=== PATIENT | male | born 1950 | race Caucasian/White ===

== ENCOUNTER 2018-05-20 10:46 | Emergency (ER) | payer OTHER, SELFPAY ==
--- NOTE | 2018-05-20 10:53 | W.ED.GENAD ---
Discharge Plan Disposition Patient Disposition: HOME Condition: Fair Discharge Details Chief Complaint: Orthopedic Clinical Impression: Contusion of right shoulder, Impingement syndrome of right shoulder Primary Care Provider: Lesley Jones ED Provider: Shikha Rivero Home Meds and New Rx's Prescriptions: New ibuprofen 800 mg tablet 800 mg PO TID PRN (Reason: pain) Qty: 20 RF: 0 Continued aspirin [Lo-Dose Aspirin] 81 MG tablet,delayed release (DR/EC) 81 mg PO DAILY RF: 0 Varicella-Zoster Ge/As01b/Pf [Shingrix Vial Kit] 50 MCG INJ 50 mcg IM ONCE Qty: 1 RF: 1 Atorvastatin Calcium 20 MG tablet 20 mg PO DAILY Qty: 90 RF: 3 No Action amlodipine-benazepril 10-20 mg capsule 1 cap PO DAILY Qty: 90 RF: 0 Discharge Instructions Instructions: Rotator Cuff Injury (ED), Contusion in Adults (ED) Additional Instructions: Encourage rest and ice to right shoulder. Tylenol and/or Ibuprofen. Ibuprofen will help with swelling. May try Salonpas or Lidoderm patches for discomfort. Passive range of motion exercises as discussed to prevent frozen shoulder. Please call orthopedics to schedule follow up appointment, number listed below. If you develop new/worsening symptoms please seek care urgently once again. Referrals: Noe Leach MD [ [facility] STAFF PHYSICIAN] - Discharge Data Discharge Date/Time-TO BE ENTERED AT DEPARTURE: 05/20/18 12:46 Medical Decision Making Patient is 68-year llskz-yono-wuhsgwtv male presenting today with chief complaint of right shoulder pain. He reports that he fell when he slipped on the ice yesterday and landed on the right shoulder. States the pain is progressively increasing and he is noted diminished range of motion. He denies any altered sensation. Denies other injury at the time of the incident. Denies headache, no loss conscious. No neck pain on exam. Full range of motion no midline or paraspinal tenderness. Pain is primarily over the lateral aspect of the shoulder. He has a positive Neer and Hawkin. I have primarily concern for rotator cuff injury, possibly impingement syndrome. No pain over any bony prominences. I did advise the patient that I am concerned about him potentially developing adhesive capsulitis. Will obtain x-ray to evaluate for any bony abnormality. Discussed this plan with patient who is in agreement. Patient given Tylenol and ibuprofen to help with discomfort Spoke with radiologist who advised no acute abnormality on XR. Discussed these findings with the patient. Advised that his history and exam is most concerning for impingement syndrome versus rotator cuff injury. She has limited range of motion I am concerned for adhesive capsulitis. He was given passive range of motion exercises to help promote range of motion and prevent this from worsening. Encourage use of anti-inflammatories. Patient prescribed ibuprofen. We discussed topical options and may also help with discomfort. In particular, patient was concerned he is having pain when laying supine. We did discuss positional changes he may make to help with discomfort at night. We discussed new/worsening symptoms when to seek care urgently once again. Advise follow-up with orthopedics, he will call them this afternoon to schedule follow-up appointment. I advised that he seek care urgently once again with any new or worsening symptoms. All of his questions and concerns were addressed and he is in agreement with this plan HPI General Mode of arrival: ambulatory. Date/Time Provider Initiated Documentation: 05/20/18 10:52. Limitations to Documentation: no limitations. Information obtained by: patient. History of Present Illness 68 year old M presents to the emergency department with the chief complaint of right shoulder pain, described as moderate, with intensity rated at 6. Quality is described as aching, and is localized to the right and upper extremity. Patient distal (into upper 1/2 of lateral right arm). Patient started experiencing this day(s) (1) and it has been constant. Immobilization improves symptom(s), Movement worsens symptoms . Patient notes denies chest pain, cough, fever/chills, headaches, rash and weakness. Patient did receive the following treatments prior to arrival, none Related Data Home Medications Medication Instructions Recorded Confirmed aspirin [Lo-Dose Aspirin] 81 mg PO DAILY tab-cap 09/03/12 05/20/18 amlodipine 10 mg-benazepril 20 mg 1 cap PO DAILY #90 tab-cap 05/20/18 capsule ibuprofen 800 mg PO TID PRN #20 tab 05/20/18 Previous Rx's Medication Instructions Recorded amlodipine 10 mg-benazepril 20 mg 1 cap PO DAILY #90 tab-cap 05/20/18 capsule ibuprofen 800 mg PO TID PRN #20 tab 05/20/18 Allergies Allergy/AdvReac Type Severity Reaction Status Date / Time No Known Allergies Allergy Unverified 12/09/17 10:09 Review of Systems Constitutional Reports as per HPI, Denies chills, Denies fever(s), Denies headache(s) and Denies weakness ENT Denies headache(s) Cardiovascular Reports as per HPI Respiratory Reports as per HPI and Denies cough Musculoskeletal Reports as per HPI and Denies tingling Integumentary/Breasts Reports as per HPI, Denies rash and Denies wounds Neurologic Denies headache(s), Denies tingling and Denies weakness [facility] Surgical History Appendectomy Arthroplasty of knee Colonoscopy - IV Sedation (04/09/16) Skin Cancer Removal Tonsillectomy blepharoplasty Family History Father Essential hypertension Heart disease Mother No problems noted. Brother No problems noted. Other Colon cancer Lung cancer Social History Smoking/Tobacco Use Status: Never Exam Const General: cooperative, healthy appearing, comfortable, no acute distress, well developed and well groomed Nutritional Appearance: average body habitus and well nourished Orientation: alert and awake Chest Chest: normal inspection of the chest, normal palpation of entire chest wall, no crepitus and no localized rib tenderness Resp Effort & Inspection: normal respiratory effort, able to speak in complete sentences and no respiratory distress Auscultation: clear to auscultation bilaterally Cardio Rate: regular rate Rhythm: regular rhythm Heart Sounds: S1 normal and S2 normal Skin General skin exam: no rashes or lesions noted Lesions: no lesions Rashes: no rashes Trauma: no lacerations or abrasions Neuro General: alert and awake Cognition: normal cognition Speech: speech normal Gait: normal gait Motor: muscle tone normal throughout Sensory Exam: no sensory deficits noted Extrem Right upper extremity: normal capillary refill, no joint enlargement, shoulder/upper arm Details: tenderness Location: over the subacromial bursa; not of the clavicle, not of the A-C joint, not of the proximal humerus, not of the scapula, not of the mid-shaft humerus and not over the biceps tendon and abnormal ROM; abnormal to inspection, no swelling, ROM limited, no ecchymosis, no crepitus, no deformity and no unusual warmth, elbow/forearm Details: normal to inspection and normal ROM; no tenderness and no swelling, wrist Details: normal to inspection; no tenderness and hand Details: neuromotor exam abnormal and neurosensory exam normal; ROM limited (FE lacking 15 degrees, ER limited 20 degrees, IR to gluteus shoulder) Psych Appearance: grossly normal and well kempt Mental Status: mental status grossly normal Speech and Movement: speech and movement normal
[2018-05-20 10:55] VITALS: BP 134/94; PULSE 88; RESP 18; TEMP 36.2; O2SAT 99
--- NOTE | 2018-05-20 11:05 | DI.RAD_ITS ---
SYMPTOMS/DIAGNOSIS: FALL RIGHT SHOULDER: There is no evidence of an acute fracture or dislocation. Mild degenerative changes are identified.
--- NOTE | 2018-05-20 11:07 | ED.GENADUL_ITS ---
Discharge Plan Disposition Patient Disposition: HOME Condition: Fair Discharge Details Chief Complaint: Orthopedic Clinical Impression: Contusion of right shoulder, Impingement syndrome of right shoulder Primary Care Provider: Lesley Jones ED Provider: Shikha Rivero Home Meds and New Rx's Prescriptions: New ibuprofen 800 mg tablet 800 mg PO TID PRN (Reason: pain) Qty: 20 RF: 0 Continued aspirin [Lo-Dose Aspirin] 81 MG tablet,delayed release (DR/EC) 81 mg PO DAILY RF: 0 Varicella-Zoster Ge/As01b/Pf [Shingrix Vial Kit] 50 MCG INJ 50 mcg IM ONCE Qty: 1 RF: 1 Atorvastatin Calcium 20 MG tablet 20 mg PO DAILY Qty: 90 RF: 3 No Action amlodipine-benazepril 10-20 mg capsule 1 cap PO DAILY Qty: 90 RF: 0 Discharge Instructions Instructions: Rotator Cuff Injury (ED), Contusion in Adults (ED) Additional Instructions: Encourage rest and ice to right shoulder. Tylenol and/or Ibuprofen. Ibuprofen will help with swelling. May try Salonpas or Lidoderm patches for discomfort. Passive range of motion exercises as discussed to prevent frozen shoulder. Please call orthopedics to schedule follow up appointment, number listed below. If you develop new/worsening symptoms please seek care urgently once again. Referrals: Noe Leach MD [ [facility] STAFF PHYSICIAN] - Discharge Data Discharge Date/Time-TO BE ENTERED AT DEPARTURE: 05/20/18 12:46 Medical Decision Making Patient is 68-year [id number] male presenting today with chief complaint of right shoulder pain. He reports that he fell when he slipped on the ice yesterday and landed on the right shoulder. States the pain is progressively increasing and he is noted diminished range of motion. He denies any altered sensation. Denies other injury at the time of the incident. Denies headache, no loss conscious. No neck pain on exam. Full range of motion no midline or paraspinal tenderness. Pain is primarily over the lateral aspect of the shoulder. He has a positive Neer and Hawkin. I have primarily concern for rotator cuff injury, possibly impingement syndrome. No pain over any bony prominences. I did advise the patient that I am concerned about him potentially developing adhesive capsulitis. Will obtain x-ray to evaluate for any bony abnormality. Discussed this plan with patient who is in agreement. Patient gi yeyo Tylenol and ibuprofen to help with discomfort Spoke with radiologist who advised no acute abnormality on XR. Discussed these findings with the patient. Advised that his history and exam is most concerning for impingement syndrome versus rotator cuff injury. She has limited range of motion I am concerned for adhesive capsulitis. He was given passive range of motion exercises to help promote range of motion and prevent this from worsening. Encourage use of anti-inflammatories. Patient prescribed ibuprofen. We discussed topical options and may also help with discomfort. In particular, patient was concerned he is having pain when laying supine. We did discuss positional changes he may make to help with discomfort at night. We discussed new/worsening symptoms when to seek care urgently once again. Advise follow-up with orthopedics, he will call them this afternoon to schedule follow- up appointment. I advised that he seek care urgently once again with any new or worsening symptoms. All of his questions and concerns were addressed and he is in agreement with this plan HPI General Mode of arrival: ambulatory . Date/Time Provider Initiated Documentation: 05/20/18 10:52 . Limitations to Documentation: no limitations . Information obtained by: patient . History of Present Illness 68 year old M presents to the emergency department with the chief complaint of right shoulder pain, described as moderate, with intensity rated at 6. Quality is described as aching, and is localized to the right and upper extremity. Patient distal (into upper 1/2 of lateral right arm). Patient started experiencing this day(s) (1) and it has been constant. Immobilization improves symptom(s), Movement worsens symptoms . Patient notes denies chest pain, cough, fever/chills, headaches, rash and weakness. Patient did receive the following treatments prior to arrival, none Related Data Home Medications Medication Instructions Recorded Confirmed aspirin [Lo-Dose Aspirin] 81 mg PO DAILY tab-cap 09/03/12 05/20/18 amlodipine 10 mg-benazepril 20 mg 1 cap PO DAILY #90 tab-cap 05/20/18 capsule ibuprofen 800 mg PO TID PRN #20 tab 05/20/18 Previous Rx's Medication Instructions Recorded amlodipine 10 mg-benazepril 20 mg 1 cap PO DAILY #90 tab-cap 05/20/18 capsule ibuprofen 800 mg PO TID PRN #20 tab 05/20/18 Allergies Allergy/AdvReac Type Severity Reaction Status Date / Time No Known Allergies Allergy Unverified 12/09/17 10:09 Review of Systems Constitutional Reports as per HPI, Denies chills, Denies fever(s), Denies headache(s) and Denies weakness ENT Denies headache(s) Cardiovascular Reports as per HPI Respiratory Reports as per HPI and Denies cough Musculoskeletal Reports as per HPI and Denies tingling Integumentary/Breasts Reports as per HPI, Denies rash and Denies wounds Neurologic Denies headache(s), Denies tingling and Denies weakness [facility] Surgical History Appendectomy Arthroplasty of knee Colonoscopy - IV Sedation (04/09/16) Skin Cancer Removal Tonsillectomy blepharoplasty Family History Father Essential hypertension Heart disease Mother No problems noted. Brother No problems noted. Other Colon cancer Lung cancer Social History Smoking/Tobacco Use Status: Never Exam Const General: cooperative, healthy appearing, comfortable, no acute distress, well developed and well groomed Nutritional Appearance: average body habitus and well nourished Orientation: alert and awake Chest Chest: normal inspection of the chest, normal palpation of entire chest wall, no crepitus and no localized rib tenderness Resp Effort & Inspection: normal respiratory effort, able to speak in complete sentences and no respiratory distress Auscultation: clear to auscultation bilaterally Cardio Rate: regular rate Rhythm: regular rhythm Heart Sounds: S1 normal and S2 normal Skin General skin exam: no rashes or lesions noted Lesions: no lesions Rashes: no rashes Trauma: no lacerations or abrasions Neuro General: alert and awake Cognition: normal cognition Speech: speech normal Gait: normal gait Motor: muscle tone normal throughout Sensory Exam: no sensory deficits noted Extrem Right upper extremity: normal capillary refill, no joint enlargement, shoulder/upper arm Details: tenderness Location: over the subacromial bursa; not of the clavicle, not of the A-C joint, not of the proximal humerus, not of the scapula, not of the mid-shaft humerus and not over the biceps tendon and abnormal ROM; abnormal to inspection, no swelling, ROM limited, no ecchymosis, no crepitus, no deformity and no unusual warmth, elbow/forearm Details: normal to inspection and normal ROM; no tenderness and no swelling, wrist Details: normal to inspection; no tenderness and hand Details: neuromotor exam abnormal and neurosensory exam normal; ROM limited (FE lacking 15 degrees, ER limited 20 degrees, IR to gluteus shoulder) Psych Appearance: grossly normal and well kempt Mental Status: mental status grossly normal Speech and Movement: speech and movement normal
[2018-05-20] MEDS: Acetaminophen 500 MG TAB 1000 MG PO (11:09)
[2018-05-20] MEDS: Ibuprofen 600 MG TAB PO (11:09)
[2018-05-20 12:45] VITALS: BP 134/94; PULSE 88; RESP 18; TEMP 36.2; O2SAT 99
== END 2018-05-20 12:46 | disposition home or self-care (01) ==
PROVIDERS: Emergency Provider Physician Assistant; PCP Internal Medicine
DX: S46.001A Unspecified injury of muscle(s) and tendon(s) of the rotator cuff of right shoulder, initial encounter (principal); S40.011A Contusion of right shoulder, initial encounter; W10.8XXA Fall (on) (from) other stairs and steps, initial encounter; I10 Essential (primary) hypertension
CPT/HCPCS: 99283; 73030

== ENCOUNTER 2018-12-07 10:17 | Outpatient (CLI) | payer OTHER, SELFPAY ==
[2018-12-07 11:26] LABS: ALT 33 U/L (12-78); AST 27 U/L (15-37); Albumin 3.8 g/dL (3.4-5.0); Alkaline Phosphatase 53 U/L (46-116); Anion Gap 9.2 mmol/L (3-11); BUN 22 mg/dL (7-18); Bilirubin, Total 0.6 mg/dL (0.2-1.0); CO2 27.8 mmol/L (21.0-32.0); CREATININE 1.17 mg/dL (0.70-1.30); Calcium 8.8 mg/dL (8.5-10.1); Chloride 106 mmol/L (98-107); Glucose 102 mg/dL (70-100); Potassium 4.7 mmol/L (3.5-5.1); Sodium 143 mmol/L (136-145)
[2018-12-08 10:10] LABS: PSA, Screening 4.2 ng/ml (0-4.5)
[2018-12-09 23:04] LABS: Calculated LDL 90 mg/dL; Cholesterol 165 mg/dL (50-200); HDL Cholesterol 69 mg/dL (40-60); Triglyceride 32 mg/dL (30-150)
== END 2018-12-07 10:37 ==
PROVIDERS: PCP Internal Medicine; Visit Provider Internal Medicine
DX: R74.0 Nonspecific elevation of levels of transaminase and lactic acid dehydrogenase [LDH]; Z80.42 Family history of malignant neoplasm of prostate; Z91.89 Other specified personal risk factors, not elsewhere classified; I10 Essential (primary) hypertension
CPT/HCPCS: 36415; 80053; 80061; 83721; 84153

== ENCOUNTER 2020-06-19 10:19 | Outpatient (REF) | payer BC, SELFPAY ==
[2020-06-19 15:34] LABS: Anion Gap 11.7 mmol/L (3-11); BUN 24 mg/dL (7-18); CO2 24.3 mmol/L (21.0-32.0); CREATININE 1.2 mg/dL (0.70-1.30); Calcium 9.1 mg/dL (8.5-10.1); Calculated LDL 73 mg/dL (<100); Chloride 104 mmol/L (98-107); Cholesterol 149 mg/dL (<200); Glucose 101 mg/dL (74-106); HDL Cholesterol 68 mg/dL (40-60); Potassium 4.7 mmol/L (3.5-5.1); Sodium 140 mmol/L (136-145); Triglyceride 43 mg/dL (<150)
[2020-06-19 22:24] LABS: PSA, Screening 4.2 ng/mL (0.0-4.5)
== END 2020-06-19 10:20 | disposition home or self-care (01) ==
LOC: LBN 10:19
PROVIDERS: PCP Internal Medicine; Visit Provider Internal Medicine
DX: I10 Essential (primary) hypertension (principal); E78.00 Pure hypercholesterolemia, unspecified; Z12.5 Encounter for screening for malignant neoplasm of prostate; Z80.42 Family history of malignant neoplasm of prostate
CPT/HCPCS: 80048; 80061; 84153

== ENCOUNTER 2020-10-22 10:17 | Day surgery (SDC) | payer BC, SELFPAY ==
--- NOTE | 2020-10-22 06:52 | W.COLOREPORT ---
Date of service: 10/22/20 Time of Service: 12:38 Colonoscopy Report Date of procedure: 10/22/20 Pre-op diagnosis general: Colon Cnacer screening, Family history of colon cancer Post-op diagnosis procedure note: other (colorectal polyps and diverticulosis) Procedure: Colonoscopy with polypectomy Surgeon: Genoveva Peter Anesthesia Type: General:No Airway (ASA 2/Yousif Olguin, STAS) Estimated blood loss (mL): 3 Pathology: other (Ascending, transverse, descending x3, sigmoid x2 polyps) Complications: None Disposition: same day Indications: The patient is here for Colonoscopy pre-op. His last screening was in 2016, which was remarkable for hyperplastic polyps. He reports a family history of colon cancer in his brother in his late 60s. He has not had any bowel habit changes. -Discussed colonoscopy bowel prep as well as the procedure. Discussed possible complications of the procedure to include bleeding, pain, perforation, missed small lesion/polyp, sore throat, aspiration and adverse reaction to the medications. Questions were answered to patient?s satisfaction. No guarantees were implied or given. Prep: Miralax/Dulcolax Procedure Start Time: 11:44 Procedure End Time: 12:28 Retraction Time: 32 minutes Findings: multiple polyps 2 larger peduncultaed polyps in the sigmoid colon. Both approximately 0.9 cm in size Procedure Description: After informed consent was obtained the patient was taken to the procedure room and placed in a left decubitous position. Monitors were applied and a time out was done. The patients name, date of , procedure, allergies to medications and metal in their body was reviewed. The patient was then sedated. Once sedated and comfortable a rectal exam was done. External exam was normal. Internal exam revealed a normal sphincter tone and no palpable masses. The prostate felt smooth and slightly enlarged. The scope was then introduced and retro-flexed. No internal hemorrhoids, polyps or masses were identified on retro-flexion. The scope was then advanced to the cecum without difficulty. The ileocecal vlave and appendiceal orifice were identified. The prep was good. The scope was then slowly retracted over 32 minutes back into the rectum. Polyps were removed with cold forceps in the ascending colon x1, transverse colon x1, descending colon x3 and with hot snare in the proximal and distal sigmoid colon. There was moderate descending and sigmoid diverticulosis noted. The scope was removed and the patient was woken up and taken back to Same day surgery in stable condition. The patient tolerated the procedure well and there were no immediate complications. Follow up: The patient should follow up in 3 years unless they develop changes in bowel habits or other new gastrointestinal complaints.
--- NOTE | 2020-10-22 06:53 | W.PM.DSUDISC ---
Discharge Plan Disposition Patient Disposition: HOME Condition: Good Discharge Details Reason For Visit: Colonoscopy Attending Provider: Genoveva Peter Primary Care Provider: Lesley Jones Home Meds and New Rx's Prescriptions: Continued atorvastatin 20 mg tablet 20 mg PO DAILY Qty: 90 RF: 3 aspirin [Lo-Dose Aspirin] 81 MG tablet,delayed release (DR/EC) 81 mg PO DAILY RF: 0 amlodipine-olmesartan 10-20 mg tablet 1 tab PO DAILY Qty: 90 RF: 3 Discontinued polyethylene glycol 3350 17 gram/dose powder 238 g PO ONCE Qty: 238 RF: 0 bisacodyl [Dulcolax (bisacodyl)] 5 mg tablet,delayed release (DR/EC) 5 mg PO ONCE Qty: 4 RF: 0 Discharge Instructions Instructions: Colorectal Polyps (DC), Diverticulosis (DC) Additional Instructions: Findings: multiple polyps. moderate diverticulosis Follow up: 3 to 5 years Please call if you develop: fevers >101.5 Nausea or Vomiting Abdominal pain that is not transient Rectal bleeding that is more then a tbsp A hard abdomen and inability to pass gas DAY SURGERY UNIT POST ENDOSCOPY INSTRUCTIONS Instructions for everyone who is given Anesthesia: For your safety, please do the following for the next 24 Hours: a. Do not drive or operate dangerous equipment b. Do not drink alcohol beverages or use any recreational drugs for the first 24 hours or while taking pain medications. The medications in your body may have a reaction that can be dangerous. c. Do not make any important decisions or sign any important papers 1. Generally there are no restrictions on your activity after a day or so has gone by, but you may feel a bit fatigued for a few days. 2. After you arrive home you may have a light meal and return to a normal diet as you can tolerate it without feeling sick to your stomach. 3. After surgery, you may feel pain or discomfort. This should be only transient, but if it persists please contact your doctor. 4. If there are any questions regarding the findings of your procedure, please feel free to contact your doctor. 6. If you are unable to contact your doctor with a problem, contact the hospital at [phone]. 7. Continue all your regular medications unless directed otherwise. I understand the above instructions and have no questions. Signature of Patient or Responsible Adult Escort Date/Time Name of Responsible Adult Escort Signature of Nurse Date/Time Activity:: Activity as Tolerated Diet:: high finer diet Discharge Orders Discharge Orders: Discharge Order (Routine); Ordered 10/22/20 Ordered By: Genoveva Peter
[2020-10-22 10:33] VITALS: BP 138/71; PULSE 81; RESP 16; TEMP 36.5; O2SAT 98
[2020-10-22] MEDS: Lactated Ringers 1,000 ML 80 ML IV (10:47)
--- NOTE | 2020-10-22 11:12 | ANES.PREOP_ITS ---
General Info Date of Service Date Performed: 10/22/20 Height: 5 ft 10.08 in Weight: 91 kg Body Mass Index (BMI): 28.7 Surgical Procedure: Operation Date: 10/22/20 11:05 Proposed Procedures Side Surgeon p Ellyn Peter MD Meds Allergies and Home Medications Allergies Allergy/AdvReac Type Severity Reaction Status Date / Time No Known Allergies Allergy Verified 10/11/20 14:01 Home Medication Medication Instructions Recorded aspirin [Lo-Dose Aspirin] 81 mg PO DAILY tab-cap 09/03/12 amlodipine 10 mg-olmesartan 20 mg 1 tab PO DAILY #90 tab 12/06/19 tablet atorvastatin 20 mg tablet 20 mg PO DAILY #90 tab-cap 12/13/19 bisacodyl 5 mg tablet,delayed 5 mg PO ONCE #4 tab 10/11/20 release polyethylene glycol 3350 17 238 g PO ONCE #238 g 10/11/20 gram/dose oral powder Current Visit Medications: Current Medications Generic Name Dose Route Start Last Admin Trade Name Freq PRN Reason Stop Dose Admin Hyoscyamine Sulfate 0.125 mg 10/22/20 06:53 Hyoscyamine 0.125 Mg Sl/Oral/Chew SL DIRECTED PRN Ringer's Solution 1,000 mls @ 80 mls/hr 10/22/20 06:00 10/22/20 10:47 IV 11/18/20 23:59 80 mls/hr INFUSION HORTENSIA Administration IV Miscellaneous Supplies 1 each 10/22/20 06:00 Iv Access IV 11/18/20 23:59 DIRECTED HORTENSIA Ondansetron HCl 4 mg 10/22/20 06:53 Ondansetron 4 Mg/2 Ml Vial IVP Q4H PRN PRN Nausea / Vomiting Sodium Chloride 0 ml 10/22/20 06:00 Normal Saline Flush 10 Ml Syr IV 11/18/20 23:59 PRN PRN Sodium Chloride 0 ml 10/22/20 06:00 Normal Saline 10 Ml Vial IJ 11/18/20 23:59 DIRECTED PRN Sterile Water 0 ml 10/22/20 06:00 Water,Injection,Sterile 10 Ml Vial IJ 11/18/20 23:59 DIRECTED PRN PFSH Active Problems Active Problems: Problem Status Onset Code Squamous cell carcinoma of skin of left cheek 10/27/16 C44.329 Ptosis of eyelid 07/28/12 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 Melanoma in situ of right upper extremity 12/24/17 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 [place] cardiac risk 10-20% in next 10 years 07/03/15 Z91.89 Family history of colon cancer 01/25/14 Z80.0 Essential hypertension 12/08/12 I10 BPH NOS w ur obs/LUTS 04/14/17 N40.1 Actinic keratosis 07/28/12 L57.0 Family history of prostate cancer Z80.42 Hypercholesterolemia E78.00 Elevated fasting glucose R73.01 Basal cell carcinoma of skin, unspecified C44.91 Medical History Medical History High cholesterol Hypertension Surgical History Surgical History Appendectomy Arthroplasty of knee blepharoplasty Colonoscopy - IV Sedation (04/09/16) S/P skin biopsy (08/30/19) [place] [facility] [place] Skin Cancer Removal 12/24/17 excision of melanoma RUE Tonsillectomy Tobacco Smoking/Tobacco Use Status: Never Alcohol Alcohol Intake: current Alcohol intake frequency: 0-2 drinks per day Alcohol type: beer Substance Use Substance use: Occasionally Substance use type: marijuana Details: Last smoked marijuana a couple of days ago. Vital Signs and Lab Results Vital Signs Most Recent Vital Signs in EMR: Most Recent Vital Signs Temp Pulse Resp BP Pulse Ox 36.5 C 81 16 138/71 98 10/22/20 10:33 10/22/20 10:33 10/22/20 10:33 10/22/20 10:33 10/22/20 10:33 Lab Results Blood Type / Crossmatch: No Data to Display Complete Blood Count: No Data to Display Complete Metabolic Panel: No Data to Display Liver Function Panel: No Data to Display Coagulation Panel: No Data to Display Cardiac Panel: No Data to Display Arterial Blood Gas: No Data to Display Venous Blood Gas: No Data to Display Pancreas Panel: No Data to Display Thyroid Panel: No Data to Display Infectious Disease: No Data to Display Blood Cultures: No Data to Display Toxicology Panel: No Data to Display Imaging and Studies Imaging and Studies Stress Test Summary: Impressions: - No chest pain with exercise. - Blood pressure response was hypertensive with stress. - Negative stress test after maximal exercise. Summary: 1. Stress ECG conclusions: The stress ECG is negative. Petersen treadmill score: 9. This score predicts a low risk of cardiac events. 2. Stress: The target heart rate was achieved. The heart rate response to stress is exaggerated. There is resting hypertension with a hypertensive response to stress. The patient experienced no chest pain during stress. Exercise capacity is above normal for age. Recommendations: Optimize blood pressure control. 01/07/17 Anesthesia Assessment and Plan Anesthesia History Personal History: No History of Anesthesia Complications Family History: No Family History of Anesthesia Complications Exercise Tolerance Exercise Tolerance: Metabolic Equivalents>4 Pertinent Negatives Pertinent Negatives: No Symptoms of GERD, No Major Cardiovascular Symptoms or Complaints, No Major Pulmonary Symptoms or Complaints and No History of CVA/TIA Cardiac & Pulmonary Exam Cardiac Exam: Normal S1/S2 Heart Sounds Pulmonary Exam: Clear Bilateral Breath Sounds Airway Exam Known Difficult Airway: No Mallampati Class: 2 Mouth Opening: Normal (> 3cm) Thyromental Distance: Greater than 3 cm Neck Range of Motion: Full ROM Neck Circumference: Normal Teeth Condition: Normal Dentition ASA Classification ASA Score: ASA 2 Emergency Case?: No NPO Status NPO Status: NPO Clears >2 hours, Solids >8 hours Anesthesia Plan Resuscitation Status: Full Code Anesthesia Technique: General Anesthesia Airway Planned: Natural Airway Monitors Used: Standard Monitors
[2020-10-22 11:17] VITALS: BMI 28.7
--- NOTE | 2020-10-22 12:00 | BOWEL_PTH ---
PATIENT: Willard Montague LOC: [facility] U#:[id number] AGE/SX: 70/M ROOM: RE10/22/[address]: Genoveva Peter MD : 1950 BED: DIS: 10/22/2020 SPEC #: [id number] RECD: 10/22/20 13:05 STATUS: EFREN RE #: [id number] RAYNA: 10/22/20 12:[address]: Genoveva Peter DEPT: Surgical Specimen RECD BY: Lucía Rodriguez ENTERED: 10/22/20 13:07 SP TYPE: Bowel OTHR DR: Lesley Jones MD Tissues: 1 - BIOPSY BOWEL 2 - BIOPSY BOWEL 3 - BIOPSY BOWEL 4 - BIOPSY BOWEL 5 - BIOPSY BOWEL Procedures: GROSS AND MICRO LEVEL 4 Comments: [id number]
[2020-10-22 12:38] VITALS: BP 124/65; PULSE 78; RESP 15; TEMP 36.5; O2SAT 97
[2020-10-22 13:08] VITALS: BP 147/82; PULSE 72; RESP 16; TEMP 36.5; O2SAT 97
--- NOTE | 2020-10-22 13:57 | W.ANESPOSTOP ---
Postoperative Evaluation Date, Time and Location Date Performed: 10/22/20 Time Performed: 13:57 Patient Location: Day Surgery Unit Vital Signs Most Recent Imported Vital Signs: Most Recent Vital Signs Temp Pulse Resp BP Pulse Ox 36.5 C 72 16 147/82 H 97 10/22/20 13:08 10/22/20 13:08 10/22/20 13:08 10/22/20 13:08 10/22/20 13:08 Pain Score Most Recent Pain Score: Most Recent Pain Score Pain Level 0 10/22/20 13:08 Assessment Mental Status: Awake (Alert & Oriented to Patient Baseline) Airway and Respiratory Function: Patent airway with normal (patient baseline) respiratory exam Cardiovascular Function: Hemodynamically Stable Hydration Status: Adequately Hydrated Nausea & Vomiting: No Nausea or Vomiting Pain: Pt. Denies Any Pain Peripheral Nerve Block: Patient did not receive a nerve block
== END 2020-10-22 13:30 | disposition home or self-care (01) ==
LOC: SUR 10:18
PROVIDERS: PCP Internal Medicine; Visit Provider Surgery
PROC: 0DJD8ZZ Inspection of Lower Intestinal Tract, Via Natural or Artificial Opening Endoscopic (ICD-10-PCS; CPT 45378; principal; 2020-10-22 11:00)
DX: Z12.11 Encounter for screening for malignant neoplasm of colon (principal); Z80.0 Family history of malignant neoplasm of digestive organs; K57.30 Diverticulosis of large intestine without perforation or abscess without bleeding; D12.2 Benign neoplasm of ascending colon; D12.3 Benign neoplasm of transverse colon; D12.4 Benign neoplasm of descending colon; D12.5 Benign neoplasm of sigmoid colon
CPT/HCPCS: 45385; 45380; 88305; J2001; J2704

== ENCOUNTER 2021-10-21 03:51 | Outpatient (CLI) | payer BC, SELFPAY ==
[2021-10-21 12:42] LABS: Abs Immature Grans 0.02 10^3/uL (0.0-0.06); Absolute Basophil Count 0.13 10^3/uL (0.0-0.2); Absolute Eosinophil Count 0.32 10^3/uL (0.0-0.7); Absolute Lymphocyte Count 1.55 10^3/uL (1.2-3.4); Absolute Monocyte Count 0.71 10^3/uL (0.1-0.8); Absolute Neutrophil Count 4.41 10^3/uL (1.2-6.7); Basophils % 1.8; Eosinophils % 4.5; HCT 37.9 % (40.0-50.0); HGB 13.4 g/dL (13.5-17.5); Immature Grans % 0.3; Lymphocytes % 21.7; MCH 32.8 pg (27.0-33.0); MCHC 35.4 % (32.0-36.0); MCV 93 fL (80-95); MPV 11.7 fL (8.0-11.0); Monocytes % 9.9; Neutrophils % 61.8; Platelet Count 151 10^3/uL (130-400); RBC 4.09 10^6/uL (4.36-5.78); RDW 12.2 % (11.8-14.1); RDW-SD 41.5 fL; WBC 7.14 10^3/uL (4.4-10.8)
[2021-10-21 13:39] LABS: BUN 23 mg/dL (7-18); CREATININE 1.1 mg/dL (0.70-1.30); Calculated LDL 75 mg/dL (<100); Chloride 103 mmol/L (98-107); Cholesterol 161 mg/dL (<200); Glucose 107 mg/dL (74-106); HDL Cholesterol 75 mg/dL (40-60); Potassium 4.3 mmol/L (3.5-5.1); Sodium 136 mmol/L (136-145); Triglyceride 59 mg/dL (<150)
[2021-10-22 09:45] LABS: PSA, Screening 4.1 ng/mL (<=4.5)
== END 2021-10-21 03:52 | disposition home or self-care (01) ==
LOC: LBO 03:51
PROVIDERS: PCP Internal Medicine; Visit Provider Dermatology
DX: I10 Essential (primary) hypertension (principal); E78.00 Pure hypercholesterolemia, unspecified; Z12.5 Encounter for screening for malignant neoplasm of prostate; Z80.42 Family history of malignant neoplasm of prostate
CPT/HCPCS: 36415; 80048; 80061; 84153; 85025

== ENCOUNTER 2022-10-21 02:03 | Outpatient (CLI) | payer BC, SELFPAY ==
[2022-10-21 07:21] LABS: Abs Immature Grans 0.02 10^3/uL (0.0-0.06); Absolute Eosinophil Count 0.44 10^3/uL (0.0-0.7); Absolute Lymphocyte Count 1.55 10^3/uL (1.2-3.4); Absolute Monocyte Count 0.64 10^3/uL (0.1-0.8); Absolute Neutrophil Count 4.22 10^3/uL (1.2-6.7); Basophils % 1.4; Eosinophils % 6.3; HCT 37.7 % (40.0-50.0); HGB 12.7 g/dL (13.5-17.5); Immature Grans % 0.3; Lymphocytes % 22.2; MCH 31.7 pg (27.0-33.0); MCHC 33.7 % (32.0-36.0); MCV 94 fL (80-95); MPV 11.6 fL (8.0-11.0); Monocytes % 9.2; Neutrophils % 60.6; Platelet Count 145 10^3/uL (130-400); RBC 4.01 10^6/uL (4.36-5.78); RDW 12.2 % (11.8-14.1); RDW-SD 42.4 fL; WBC 6.97 10^3/uL (4.4-10.8)
[2022-10-21 07:59] LABS: ALT 49 U/L (16-63); AST 54 U/L (15-37); Albumin 3.4 g/dL (3.4-5.0); Alkaline Phosphatase 62 U/L (46-116); Anion Gap 10.6 mmol/L (3-11); BUN 22 mg/dL (7-18); Bilirubin, Total 0.6 mg/dL (0.2-1.0); CO2 23.4 mmol/L (21.0-32.0); CREATININE 1.2 mg/dL (0.70-1.30); Calcium 8.6 mg/dL (8.5-10.1); Calculated LDL 50 mg/dL (<100); Chloride 107 mmol/L (98-107); Cholesterol 129 mg/dL (<200); Estimated GFR 65.06 (mL/min/1.73m2); Glucose 100 mg/dL (74-106); HDL Cholesterol 68 mg/dL (40-60); Potassium 4.3 mmol/L (3.5-5.1); Sodium 141 mmol/L (136-145); Total Protein 6.9 g/dL (6.4-8.2); Triglyceride 58 mg/dL (<150)
[2022-10-21 19:09] LABS: PSA, Screening 4.8 ng/mL (<=6.5)
== END 2022-10-21 02:04 | disposition home or self-care (01) ==
PROVIDERS: PCP Nurse Practitioner Family; Visit Provider Nurse Practitioner Family
DX: Z12.5 Encounter for screening for malignant neoplasm of prostate (principal); I10 Essential (primary) hypertension; E78.5 Hyperlipidemia, unspecified; Z51.81 Encounter for therapeutic drug level monitoring; Z79.899 Other long term (current) drug therapy
CPT/HCPCS: 36415; 80053; 80061; 84153; 85025

== ENCOUNTER 2023-09-11 01:55 | Outpatient (CLI) | payer BC, SELFPAY ==
[2023-09-11 09:28] LABS: Abs Immature Grans 0.02 10^3/uL (0.0-0.06); Absolute Basophil Count 0.11 10^3/uL (0.0-0.2); Absolute Eosinophil Count 0.28 10^3/uL (0.0-0.7); Absolute Lymphocyte Count 1.18 10^3/uL (1.2-3.4); Absolute Neutrophil Count 3.72 10^3/uL (1.2-6.7); Basophils % 1.9 %; Eosinophils % 4.8 %; HCT 37.1 % (40.0-50.0); HGB 12.4 g/dL (13.5-17.5); Immature Grans % 0.3 %; Lymphocytes % 20.3 %; MCH 31.9 pg (27.0-33.0); MCHC 33.4 % (32.0-36.0); MCV 95 fL (80-95); MPV 12.1 fL (8.0-11.0); Monocytes % 8.6 %; Neutrophils % 64.1 %; Platelet Count 146 10^3/uL (130-400); RBC 3.89 10^6/uL (4.36-5.78); RDW 12.4 % (11.8-14.1); Reticulocyte 2.5 % (0.5-2.4); WBC 5.81 10^3/uL (4.4-10.8)
[2023-09-11 10:14] LABS: Iron 68 ug/dL (65-175); Total Iron Binding Capacity 228 ug/dL (250-450); Transferrin Sat 30 % (20-55)
[2023-09-11 10:22] LABS: Hemoglobin A1C 5.6 % (<5.7)
[2023-09-11 10:26] LABS: ALT 29 U/L (16-63); AST 35 U/L (15-37); Albumin 3.6 g/dL (3.4-5.0); Alkaline Phosphatase 61 U/L (46-116); Anion Gap 11.1 mmol/L (3-11); BUN 18 mg/dL (7-18); Bilirubin, Total 0.7 mg/dL (0.2-1.0); CO2 23.9 mmol/L (21.0-32.0); CREATININE 1.1 mg/dL (0.70-1.30); Calcium 8.6 mg/dL (8.5-10.1); Chloride 108 mmol/L (98-107); Estimated GFR 71.77 (mL/min/1.73m2); Glucose 99 mg/dL (74-106); Potassium 4.3 mmol/L (3.5-5.1); Sodium 143 mmol/L (136-145); Total Protein 7.2 g/dL (6.4-8.2)
[2023-09-11 10:56] LABS: ALT 31 U/L (16-63); AST 34 U/L (15-37); Albumin 3.6 g/dL (3.4-5.0); Alkaline Phosphatase 62 U/L (46-116); Bilirubin, Direct 0.3 mg/dL (0.0-0.2); Bilirubin, Total 0.7 mg/dL (0.2-1.0); LDH 267 U/L (85-227); TSH (W/Ref FT4) 2.14 uIU/mL (0.36-3.74)
[2023-09-11 11:34] LABS: Calculated LDL 63 mg/dL (<100); Cholesterol 142 mg/dL (<200); Ferritin 152 ng/mL (26-388); HDL Cholesterol 72 mg/dL (40-60); Triglyceride 39 mg/dL (<150); Vitamin B12 267 pg/mL (193-986)
[2023-09-11 19:04] LABS: PSA, Screening 7.5 ng/mL (<=6.5)
== END 2023-09-11 01:56 | disposition home or self-care (01) ==
LOC: LBO 01:56
PROVIDERS: Nurse Practitioner Family; PCP Nurse Practitioner; Visit Provider Nurse Practitioner
DX: R79.89 Other specified abnormal findings of blood chemistry (principal); D64.9 Anemia, unspecified; I10 Essential (primary) hypertension; E78.00 Pure hypercholesterolemia, unspecified; R73.01 Impaired fasting glucose; N40.0 Benign prostatic hyperplasia without lower urinary tract symptoms
CPT/HCPCS: 36415; 80053; 80061; 80076; 84153; 82565; 82607; 82728; 82746; 83036; 83540; 83550; 83615; 84443; 85025; 85045

== ENCOUNTER → 2023-10-13 03:01 | Outpatient (CLI) | payer BC, SELFPAY ==
--- NOTE | 2023-10-13 07:30 | DI.US_ITS ---
Exam(s) US CAROTID EXAM: US CAROTID CLINICAL HISTORY: right carotid bruit, R09.89 symptoms/signs involving circulatory system. TECHNIQUE: Ultrasound carotids performed using grayscale, color-flow, and spectral Doppler imaging. COMPARISON: CR XR shoulder RT complete 2+V from 05/20/2018 FINDINGS: CAROTID ARTERIES: There is heterogeneous plaque in both carotid bulbs and proximal ICAs, somewhat more so on the right side where there are significantly elevated velocities, with maximum velocity recorded in the proxima l right ICA at 337 cm/sec peak systolic and with diastolic velocity 98 cm/sec. Indicates severe sten osis. The left carotid artery amount of stenosis estimated at less than 50 percent. VERTEBRAL ARTERIES: Antegrade flow was demonstrated in both vertebral arteries.. Measurements: R Bulb: 214.4cm/s PS / 63.6cm/s ED R CCA: 66.1cm/s PS / 19.4cm/s ED R ECA: 234cm/s PS / 17.6cm/s ED R ICA Prox: 336.8cm/s PS / 98.1cm/s ED R ICA Mid: 195.6cm/s PS / 27.1cm/s ED R ICA Distal: 104.3cm/s PS /28.1cm/s ED R Vert: 66.8cm/s PS / 25.7cm/s ED R SVR: 5.1 R DVR: 5.1 L Bulb: 91.7cm/s PS / 17.8cm/s ED L CCA: 107cm/s PS / 19.8cm/s ED L ECA: 142.6cm/s PS / 12.4cm/s ED L ICA Prox: 91.9cm/s PS / 23.9cm/s ED L ICA Mid: 100.7cm/s PS / 30.5cm/s ED L ICA Distal: 87cm/s PS / 28.9cm/s ED L Vert: 55.5cm/s PS / 16.9cm/s ED L SVR: 0.9 L DVR: 1.5 IMPRESSION: High-grade/severe stenosis in the right internal carotid artery in the neck. Estimated at greater th an 80 percent. Mild-moderate stenosis in the left internal carotid artery in the neck. Estimated at less than 50 pe rcent Antegrade flow is demonstrated in both vertebral arteries. Criteria for Carotid Stenosis: Normal: ICA PSV <125 cm/s no plaque or intimal thickening is visible. <50% stenosis: ICA PSV <125 cm/s and plaque or intimal thickening is visible. 50-69% stenosis: ICA PSV is 125-250 cm/s and plaque is visible. >70% stenosis to near occlusion: ICA PSV >250 cm/s with visible plaque and luminal narrowing. DATA REPOSITORY:
--- NOTE | 2023-10-13 07:30 | DI.CT_ITS ---
Exam(s) CT ABDOMEN PELVIS W EXAM: CT ABDOMEN PELVIS W CLINICAL HISTORY: intermittent abdominal pain, melanoma, R10.9, C43.9. TECHNIQUE: Imaging Protocol: Axial computed tomography images with coronal and sagittal reformatted images were created and reviewed CONTRAST MATERIAL: Intravenous: Omnipaque-350 100cc Oral: Yes. Oral contrast was also administered for bowel opacification. COMPARISON: No exams were available for comparison FINDINGS: VISUALIZED LUNG BASES: No nodules nor pleural effusions evident. Prominent azygos vein noted to the right of the aorta. ABDOMEN: There is no ascites. LIVER: There are no discrete focal hepatic lesions. No dilated intrahepatic ducts. GALLBLADDER/BILIARY: Appears collapsed. There is no pericholecystic fluid. The cystic duct is not d ilated. The CBD is not dilated. CBD is not dilated. PANCREAS: No evidence of pancreatic mass nor dilatation of the pancreatic duct. SPLEEN: Spleen is not enlarged. No obvious intrasplenic lesions. Splenic and portal veins are paten t. ADRENALS: There are no significant adrenal masses. KIDNEYS:There are parapelvic cysts in the kidneys, more numerous and larger on the left side. No jeramie e hydronephrosis. No radiopaque calculi in the kidneys. No solid renal masses evident.. ABDOMINAL AORTA: Abdominal aorta is not enlarged. OTHER VASCULAR: Venous structure to the right of the abdominal aorta drains multiple veins and chantal us venous collaterals LYMPH NODES:There is no retroperitoneal nor paraaortic adenopathy. ABDOMINAL WALL: No evidence of significant anterior abdominal wall nor inguinal hernia. GI: There is no evidence of bowel obstruction, free air, nor abscess. However, the sigmoid is abnormally thickened over long length and involved with extensive diverticulo sis. At this moment in time the does not appear to be evidence of obvious diverticulitis of a given the extensive involvement of the sigmoid a subtle case of diverticulitis can be missed. PELVIS: GI: Appendix not identified. No obvious appendicitis. LYMPH NODES: There is no intrapelvic nor inguinal adenopathy. REPRODUCTIVE: Enlarged prostate. URINARY BLADDER: Uniformly thickened urinary bladder wall. No diverticuli in the bladder. OSSEOUS: No fractures and no significant osseous lesions. IMPRESSION: 1. There is long segment extensive diverticulosis of the sigmoid. Although there is no obvious acute diverticulitis at this time, please note a subtle case of diverticulitis can be missed given the ext ensive involvement of the sigmoid here. 2. There is a prominent gallstone in the gallbladder neck. Gallbladder is not distended indeed appea rs collapsed. Nevertheless. This stone size and location would predispose to cholecystitis. 3. Multiple venous collaterals in addition to retroaortic left renal vein. Large venous structure se en at the junction of the left renal vein and IVC. Also enlarged venous azygos system. 4. No evidence of bowel obstruction. Other findings as above. RADIATION DOSE DELIVERED: Total DLP DATA REPOSITORY: All CT scans at this facility are submitted to the National Radiology Data Registry (NRDR) Dose Index Registry (DIR) with the [employer] (ACR). RADIATION OPTIMIZATION: All CT scans at this facility use at least one of these dose optimization te chniques: automated exposure control; mA and/or kV adjustment per patient size (includes targeted exa ms where dose is matched to clinical indication); or iterative reconstruction.
[2023-10-13] MEDS: Barium Sulfate 2% W/V-Creamy Vanilla Smoothie 450 ML BTL PO (08:07)
[2023-10-13] MEDS: Barium Sulfate 2% W/V-Berry Smoothie 450 ML BTL PO (08:07)
[2023-10-13 08:16] LABS: CREATININE 1.2 mg/dL (0.70-1.30); Estimated GFR 64.65 (mL/min/1.73m2)
[2023-10-13] MEDS: Normal Saline - Diluent 50 ML VIAL IJ (09:46)
[2023-10-13] MEDS: Omnipaque 350 MG/ML 500 ML BTL-Imaging package 100 ML IJ (09:47)
== END ==
PROVIDERS: PCP Nurse Practitioner; Visit Provider Nurse Practitioner
DX: R10.9 Unspecified abdominal pain (principal); K57.30 Diverticulosis of large intestine without perforation or abscess without bleeding; N40.0 Benign prostatic hyperplasia without lower urinary tract symptoms; N32.89 Other specified disorders of bladder; K80.20 Calculus of gallbladder without cholecystitis without obstruction; R09.89 Other specified symptoms and signs involving the circulatory and respiratory systems; I65.23 Occlusion and stenosis of bilateral carotid arteries; I10 Essential (primary) hypertension; Z01.812 Encounter for preprocedural laboratory examination
CPT/HCPCS: 74177; 82565; 93880

== ENCOUNTER 2023-10-21 09:13 | Outpatient (CLI) | payer BC, SELFPAY ==
[2023-10-21 20:24] LABS: PSA, Diagnostic 7.1 ng/mL (<=6.5)
== END 2023-10-21 09:14 | disposition home or self-care (01) ==
LOC: LBO 09:13
PROVIDERS: PCP Nurse Practitioner; Visit Provider Nurse Practitioner Gerontology
DX: Z80.42 Family history of malignant neoplasm of prostate (principal); N40.1 Benign prostatic hyperplasia with lower urinary tract symptoms; R97.20 Elevated prostate specific antigen [PSA]
CPT/HCPCS: 36415; 84153

== ENCOUNTER 2023-11-27 09:12 | Day surgery (SDC) | payer BC, SELFPAY ==
--- NOTE | 2023-11-26 11:50 | W.ANESPRE ---
General Info Date of Service Date Performed: 11/27/23 Height: 5 ft 10 in Weight: 92.533 kg Body Mass Index (BMI): 29.2 Surgical Procedure: Operation Date: 11/27/23 10:35 Proposed Procedure Side Surgeon p Colonoscopy Guillermo Rodriguez MD Meds Allergies and Home Medications Allergies Allergy/AdvReac Type Severity Reaction Status Date / Time No Known Allergies Allergy Verified 11/27/23 09:43 Home Medication ?Medication ?Instructions ?Recorded amlodipine 10 mg-olmesartan 20 mg 1 tab PO DAILY #90 tabs 09/02/23 tablet atorvastatin 20 mg tablet 20 mg PO DAILY cholesterol #90 09/02/23 tab-caps aspirin 81 mg capsule 81 mg PO DAILY 11/17/23 Current Visit Medications: Current Medications Generic Name Dose Route Start Last Admin Trade Name Freq PRN Reason Stop Dose Admin Ringer's Solution 1,000 mls @ 80 mls/hr 11/27/23 06:00 IV 12/26/23 23:59 INFUSION HORTENSIA IV Miscellaneous Supplies 1 each 11/27/23 06:00 Iv Access IV 12/26/23 23:59 DIRECTED HORTENSIA Sodium Chloride 0 ml 11/27/23 06:00 Normal Saline Flush 10 Ml Syr IV 12/26/23 23:59 PRN PRN Sodium Chloride 0 ml 11/27/23 06:00 Normal Saline 10 Ml Vial IJ 12/26/23 23:59 DIRECTED PRN Sterile Water 0 ml 11/27/23 06:00 Water,Injection,Sterile 10 Ml Vial IJ 12/26/23 23:59 DIRECTED PRN PFSH Active Problems Active Problems: Problem Status Onset Code Carotid stenosis, bilateral Acute ~10/2023 I65.23 Elevated PSA Acute R97.20 Anemia Chronic D64.9 Eczema Acute L30.9 History of colon polyps Acute Z86.010 Malignant melanoma Acute C43.9 Essential hypertension Acute 12/08/12 I10 Hypercholesterolemia Acute E78.00 Elevated fasting glucose Acute R73.01 [place] cardiac risk 10-20% in next 10 years Acute 07/03/15 Z91.89 Skin cancer Chronic 07/28/12 C44.90 Family history of colon cancer Acute 01/25/14 Z80.0 Family history of prostate cancer Acute Z80.42 BPH NOS w ur obs/LUTS Acute 04/14/17 N40.1 Medical History Medical History Inflamed seborrheic keratosis Lentigines Toxic effect of venom of other arthropod, assault, initial encounter (~09/2021) 10/16/21 JOELLE Sun, Dr Munson SCC (squamous cell carcinoma) (06/14/21) right lateral knee Serrated adenoma of colon (~09/2020) Tubular adenoma (~09/2020) Colon polyp, hyperplastic (~09/2020) Basal cell carcinoma of skin, unspecified 03/08/20-chest at [facility] of neck-ED&C done-Dr Wright,derm Actinic keratosis (07/28/12) 09/30/16 Dr Wright [facility] [place] cheek hypertrophic AK with other AK areas on face. 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 mccurdy [facility] [place] [facility] [place] Surgical History Surgical History Status post tonsillectomy Status post surgical removal of malignant neoplasm of skin 12/24/17 excision of melanoma RUE Status post appendectomy S/P skin biopsy (08/30/19) Dorsum of R hand [facility] [place] [facility] [place] Wright blepharoplasty Colonoscopy - IV Sedation (09/2020) Arthroplasty of knee Tobacco Smoking/Tobacco Use Status: Never Alcohol Alcohol Intake: current Alcohol intake frequency: 0-2 drinks per day Alcohol type: beer Substance Use Substance use: Occasionally Substance use type: marijuana Vital Signs and Lab Results Vital Signs Most Recent Vital Signs in EMR: Temp Pulse Resp BP Pulse Ox 36.2 C L 70 18 148/65 H 97 11/27/23 09:44 11/27/23 09:44 11/27/23 09:44 11/27/23 09:44 11/27/23 09:44 Lab Results Blood Type / Crossmatch: No Data to Display Complete Blood Count: No Data to Display Complete Metabolic Panel: No Data to Display Liver Function Panel: No Data to Display Coagulation Panel: No Data to Display Cardiac Panel: No Data to Display Arterial Blood Gas: No Data to Display Venous Blood Gas: No Data to Display Pancreas Panel: No Data to Display Thyroid Panel: No Data to Display Infectious Disease: No Data to Display Blood Cultures: No Data to Display Toxicology Panel: No Data to Display Imaging and Studies Imaging and Studies Study information below may be from another EMR and interpreted by another provider. Please see original notes in EMR for more complete details. Stress Test Summary: Impressions: - No chest pain with exercise. - Blood pressure response was hypertensive with stress. - Negative stress test after maximal exercise. Summary: 1. Stress ECG conclusions: The stress ECG is negative. Petersen treadmill score: 9. This score predicts a low risk of cardiac events. 2. Stress: The target heart rate was achieved. The heart rate response to stress is exaggerated. There is resting hypertension with a hypertensive response to stress. The patient experienced no chest pain during stress. Exercise capacity is above normal for age. Recommendations: Optimize blood pressure control. 01/07/17 Carotid Artery Summary:: 10/18: severe stenosis of right ICA at [facility], follow-up at [facility] [place] showed 50%. mild-mod stenosis in left ICA. Anesthesia Assessment and Plan Anesthesia History Personal History: No History of Anesthesia Complications Family History: No Family History of Anesthesia Complications Exercise Tolerance Exercise Tolerance: Metabolic Equivalents>4 Pertinent Negatives Pertinent Negatives: No Symptoms of GERD, No Major Cardiovascular Symptoms or Complaints and No Major Pulmonary Symptoms or Complaints Cardiac & Pulmonary Exam Cardiac Exam: Normal S1/S2 Heart Sounds Pulmonary Exam: Clear Bilateral Breath Sounds Implantable Cardiac Device Does patient have a Pacemaker or an ICD?: No Airway Exam Known Difficult Airway: No Mallampati Class: 2 Mouth Opening: Normal (> 3cm) Thyromental Distance: Greater than 3 cm Neck Range of Motion: Full ROM Neck Circumference: Normal Teeth Condition: Generalized Poor Dentition ASA Classification ASA Score: ASA 3 Emergency Case?: No NPO Status NPO Status: NPO Clears >2 hours, Solids >8 hours Anesthesia Plan Resuscitation Status: Full Code Anesthesia Technique: General Anesthesia Airway Planned: Natural Airway Monitors Used: Standard Monitors Preoperative Comments:: 73 yo male for colo. Sig PMHx: HTN, carotid stenosis, anemia, never smoker, occ EtOH/cannabis. carotid US: mild to moderate stenosis of right ICA. mild-mod stenosis in left ICA. Previous Anes: - colo, prop, natural airway, no issues.
--- NOTE | 2023-11-26 20:15 | PDOC.DSDIS_ITS ---
Date of service: 11/27/23 Time of Service: 12:48 Discharge Plan Disposition Patient Disposition: Home Condition: Good Discharge Details Reason For Visit: screening colonoscopy Attending Provider: Guillermo Rodriguez Primary Care Provider: Hiwot Tena Home Meds and New Rx's Prescriptions: Continued amlodipine-olmesartan 10-20 mg tablet 1 tab PO DAILY Qty: 90 3RF atorvastatin 20 mg tablet 20 mg PO DAILY Qty: 90 3RF aspirin 81 mg capsule 81 mg PO DAILY Discontinued bisacodyl [Dulcolax (bisacodyl)] 5 mg tablet,delayed release (DR/EC) 5 mg PO ONCE Qty: 4 0RF Rx Instructions: Colonoscopy Bowel Prep- Per Instructions polyethylene glycol 3350 17 gram/dose powder 238 g PO ONCE Qty: 238 0RF Rx Instructions: Colonoscopy Bowel Prep- Per Instructions Discharge Instructions Instructions: Colon polyps, Diverticulosis Additional Instructions: Willard, we were able to complete your colonoscopy today without much difficulty. I did find to remove a total of 3 polyps. Each of these was quite small, none of them had any features that were worrisome to the naked eye. All will be sent off for testing, and once we know the nature of those polyps, we can be in touch regarding recommendations for your next colonoscopy. Incidentally, he also have quite a bit of diverticulosis. Diverticula are small weak spots in the muscular part of the colon wall that causes the inside lining to protrude outwards. These can get infected and inflamed. When that happens, it is typically experienced as fairly sharp pain, usually on the left lower part of the abdomen, or sometimes down across the middle. This is often times associated with fevers and feeling pretty ill. Usually it is treated with ant ibiotics during those episodes of inflammation, which we called diverticulitis. I hope you are is never bother you, I did attach some general information here about basic approaches to: Rectal polyps, as well as diverticulosis. If you have any questions, please do not hesitate to call. 1. If tolerated, consume a soft, low fiber diet for 1-2 days. [address] Do not drive, drink alcohol, operate machinery, make critical decisions, or do activities that require coordination or balance for 24 hours. 3. Because air was put into your colon during the procedure, expelling air from your rectum (passing gas or farting) is normal. 4. You may not have a bowel movement for 1-3 days because of the colonoscopy prep. This is normal. 5. Go directly to the emergency room if you notice any of the following: Develop chills (warm to touch), or if you have a thermometer and your temperature is above 101 Difficulty breathing or difficultly swallowing Persistent vomiting Severe abdominal pain, other than gas cramps Severe chest pain Black, tarry stools Any bleeding ? exceeding one tablespoon 6. Call your physician if the site where your intravenous was started becomes red, swollen, painful, and warm to touch. 7. Your physician has reviewed your pre-procedure medications. Please continue to take those medications as previously ordered. You will be given specific information/education regarding any changes to your medications before leaving. Stand Alone Forms: Anesthesia Discharge InstArsh Murphy (DSU) Activity:: Activity as Tolerated Diet:: As Tolerated Discharge Orders Discharge Orders: Discharge Order (Routine); Ordered 11/26/23 Ordered By: Guillermo Rodriguez DS: Diagnosis Discharge Diagnosis (1) Encounter for screening colonoscopy: Status: Acute Asessment and Plan: Follow-up on polypectomy results
--- NOTE | 2023-11-26 20:17 | COLE_ITS ---
Date of service: 11/27/23 Time of Service: 12:45 Colonoscopy Report Date of procedure: 11/27/23 Pre-op diagnosis general: screening colonoscopy Post-op diagnosis procedure note: other (Diverticulosis, colorectal polyps) Procedure: colonoscopy with polypectomy Surgeon: Guillermo Rodriguez Anesthesia Type: General:No Airway Estimated blood loss (mL): 10 Pathology: other (0.5 cm rectal polyps x 2, 0.25 cm polyp at 85 cm) Complications: None Disposition: same day Indications: Willard is a 73 year old man with a history of adenomatous polyps who needs his next screening colonscopy Prep: Miralax/Dulcolax Procedure Start Time: 12:20 Procedure End Time: 12:39 Retraction Time: 11 Findings: Sigmoid diverticulosis; 0.25 cm rectal polyps x 2, 0.25 cm polyp at 85 cm Procedure Description: After the induction of anesthesia, and with the patient in left lateral decubitus position, I began by performing an external anorectal exam.? Perineum and skin were normal, as was the anal verge.? There was no evidence of external hemorrhoids.? Next, I performed a digital rectal exam.? I did not appreciate any abnormal findings.? Next, I advanced a colonoscope into the rectal vault.? I performed retroflexion.? This appeared normal.? Using insufflation, I then advanced the colonoscope beyond the rectal folds and into the sigmoid colon before advancing towards the cecum.? The scope was noted to be in the cecum by identification of the ileocecal valve and appendiceal orifice.? I then began withdrawing the colonoscope using repeated irrigation as necessary for full evaluation of the colonic mucosa. Around 85 cm from the anal verge was a 0.25 cm polyp. This was mostly flat. It was removed with cold forceps. ?Once the scope was withdrawn to the level of the rectum, great care was taken to examine portions of the rectal folds.? In the mid, and lower rectum were 2 more polyps. These were both less than 0.25 cm. They were both flat, and each was removed with cold forceps polypectomy without any bleeding. Finally, the scope was with drawn and the patient was brought to the same-day surgery recovery unit as the anesthetic wore off. ?The findings and instructions were shared with the patient prior to discharge. Spencer Bowel Prep Spencer Bowel Prep Right Colon: 3 Left Colon: 3 Transverse Colon: 3 Total Score: 9
[2023-11-27 09:44] VITALS: BP 148/65; PULSE 70; RESP 18; TEMP 36.2; O2SAT 97
[2023-11-27] MEDS: Lactated Ringers 1,000 ML 80 ML IV (09:54)
[2023-11-27 11:30] VITALS: BMI 29.2
--- NOTE | 2023-11-27 12:20 | BOWEL_PTH ---
PATIENT: Willard Montague LOC: [facility] U#:[id number] AGE/SX: 73/M ROOM: RE11/27/[address]: Guillermo Rodriguez MD : [id number] BED: DIS: 11/27/2023 SPEC #: [id number] RECD: 11/27/23 13:19 STATUS: EFREN RE #: [id number] RAYNA: 11/27/23 12:[address]: Guillermo Rodriguez DEPT: Surgical Specimen RECD BY: Lucía Rodriguez ENTERED: 11/27/23 13:21 SP TYPE: Bowel OTHR DR: Hiwot Tena APRN Tissues: 1 - BIOPSY BOWEL 2 - BIOPSY BOWEL Procedures: GROSS AND MICRO LEVEL 4 Comments: [id number]
[2023-11-27 12:43] VITALS: BP 124/69; PULSE 89; RESP 18; TEMP 36.4; O2SAT 97
[2023-11-27 13:29] VITALS: BP 133/69; PULSE 76; RESP 16; TEMP 35.7; O2SAT 96
--- NOTE | 2023-11-27 13:37 | W.ANESPOSTOP ---
Postoperative Evaluation Date, Time and Location Date Performed: 11/27/23 Time Performed: 13:37 Patient Location: Day Surgery Unit Vital Signs Most Recent Imported Vital Signs: Most Recent Vital Signs Temp Pulse Resp BP Pulse Ox 35.7 C L 76 16 133/69 96 11/27/23 13:29 11/27/23 13:29 11/27/23 13:29 11/27/23 13:29 11/27/23 13:29 Pain Score Most Recent Pain Score: Most Recent Pain Score Pain Level 0 11/27/23 13:29 Assessment Mental Status: Awake (Alert & Oriented to Patient Baseline) Airway and Respiratory Function: Patent airway with normal (patient baseline) respiratory exam Cardiovascular Function: Hemodynamically Stable Hydration Status: Adequately Hydrated Nausea & Vomiting: No Nausea or Vomiting Pain: Pt. Denies Any Pain Peripheral Nerve Block: Patient did not receive a nerve block
== END 2023-11-27 13:30 | disposition home or self-care (01) ==
PROVIDERS: PCP Nurse Practitioner; Visit Provider Surgery
PROC: 0DJD8ZZ Inspection of Lower Intestinal Tract, Via Natural or Artificial Opening Endoscopic (ICD-10-PCS; CPT 45378; principal; 2023-11-27 10:30)
DX: Z12.11 Encounter for screening for malignant neoplasm of colon (principal); D12.6 Benign neoplasm of colon, unspecified; D12.8 Benign neoplasm of rectum; K57.30 Diverticulosis of large intestine without perforation or abscess without bleeding; D64.9 Anemia, unspecified; I10 Essential (primary) hypertension; I65.23 Occlusion and stenosis of bilateral carotid arteries; Z86.010 Personal history of colon polyps; Z80.0 Family history of malignant neoplasm of digestive organs
CPT/HCPCS: 45380; 88305; J2704

== ENCOUNTER 2024-02-04 13:13 | Outpatient (CLI) | payer BC, SELFPAY ==
--- NOTE | 2024-02-04 10:05 | DI.RAD_ITS ---
Exam(s) XR ANKLE RT COMPLETE EXAM: XR ANKLE RT COMPLETE CLINICAL HISTORY: right ankle pain. TECHNIQUE: 2D digital imaging was performed. Three views. COMPARISON: No exams were available for comparison FINDINGS: BONES: No acute fracture is present. No bony destructive lesion is seen. JOINTS: The ankle mortise is normally aligned. No significant joint space narrowing. SOFT TISSUE: Vascular calcifications. IMPRESSION: Unremarkable radiographs of the right ankle. DATA REPOSITORY: RADIATION DOSE DELIVERED:
== END 2024-02-04 13:14 | disposition home or self-care (01) ==
LOC: DIORS 13:13
PROVIDERS: PCP Nurse Practitioner; Visit Provider Physician Assistant
DX: M25.571 Pain in right ankle and joints of right foot (principal)
CPT/HCPCS: 73610

== ENCOUNTER 2024-06-13 11:47 | Outpatient (CLI) | payer BC, SELFPAY ==
[2024-06-13 14:34] LABS: Abs Immature Grans 0.02 10^3/uL (0.0-0.06); Absolute Basophil Count 0.08 10^3/uL (0.0-0.2); Absolute Eosinophil Count 0.14 10^3/uL (0.0-0.7); Absolute Lymphocyte Count 1.43 10^3/uL (1.2-3.4); Absolute Monocyte Count 0.58 10^3/uL (0.1-0.8); Basophils % 1.1 %; Eosinophils % 1.9 %; HCT 39.2 % (40.0-50.0); HGB 13.1 g/dL (13.5-17.5); Immature Grans % 0.3 %; Lymphocytes % 19.2 %; MCH 31.7 pg (27.0-33.0); MCHC 33.4 % (32.0-36.0); MCV 95 fL (80-95); MPV 11.5 fL (8.0-11.0); Monocytes % 7.8 %; Neutrophils % 69.7 %; Platelet Count 162 10^3/uL (130-400); RBC 4.13 10^6/uL (4.36-5.78); RDW 12.2 % (11.8-14.1); RDW-SD 42.9 fL; WBC 7.45 10^3/uL (4.4-10.8)
[2024-06-13 16:24] LABS: ALT 28 U/L (16-63); AST 35 U/L (15-37); Albumin 3.8 g/dL (3.4-5.0); Alkaline Phosphatase 75 U/L (46-116); Anion Gap 9.6 mmol/L (3-11); BUN 16 mg/dL (7-18); Bilirubin, Total 0.89 mg/dL (0.2-1.0); CO2 27.4 mmol/L (21.0-32.0); CREATININE 1.3 mg/dL (0.70-1.30); Calcium 9.2 mg/dL (8.5-10.1); Calculated LDL 68 mg/dL (<100); Chloride 106 mmol/L (98-107); Cholesterol 158 mg/dL (<200); Estimated GFR 58.37 (mL/min/1.73m2); Ferritin 182 ng/mL (26-388); Glucose 97 mg/dL (74-106); HDL Cholesterol 81 mg/dL (40-60); Potassium 4.3 mmol/L (3.5-5.1); Sodium 143 mmol/L (136-145); TSH (W/Ref FT4) 3.92 uIU/mL (0.36-3.74); Total Protein 7.5 g/dL (6.4-8.2); Triglyceride 47 mg/dL (<150); Vitamin B12 273 pg/mL (193-986)
[2024-06-13 20:18] LABS: FREE T4 0.93 ng/dL (0.76-1.46)
== END 2024-06-13 11:48 | disposition home or self-care (01) ==
LOC: LBO 11:48
PROVIDERS: PCP Nurse Practitioner; Referring Provider Nurse Practitioner; Visit Provider Nurse Practitioner
DX: I10 Essential (primary) hypertension (principal); E78.00 Pure hypercholesterolemia, unspecified; D64.9 Anemia, unspecified; E53.8 Deficiency of other specified B group vitamins
CPT/HCPCS: 36415; 80053; 80061; 82607; 82728; 84439; 84443; 85025

== ENCOUNTER 2024-08-08 03:09 | Outpatient (CLI) | payer BC, SELFPAY ==
[2024-08-08 18:10] LABS: PSA, Diagnostic 5.8 ng/mL (<=6.5)
== END 2024-08-08 03:10 | disposition home or self-care (01) ==
LOC: LBO 03:09
PROVIDERS: PCP Nurse Practitioner; Visit Provider Nurse Practitioner Gerontology
DX: R97.20 Elevated prostate specific antigen [PSA] (principal)
CPT/HCPCS: 36415; 84153

== ENCOUNTER 2024-11-06 15:16 | Inpatient (IN) | payer BC, MEDICARE, SELFPAY ==
[2024-11-06] VITALS (14 sets, daily range): BP systolic 129–170; BP diastolic 33–89; PULSE 82–105; RESP 16–21; TEMP 36.8–37.9; O2SAT 95–98
--- NOTE | 2024-11-06 16:00 | DI.CT_ITS ---
Exam(s) CT ABDOMEN PELVIS W EXAM: CT ABDOMEN PELVIS W CLINICAL HISTORY: constipation, lower abd pain, fever TECHNIQUE: Imaging Protocol: Axial computed tomography images with coronal and sagittal reformatted images were created and reviewed. CONTRAST MATERIAL: Intravenous: Omnipaque 350 Contrast volume:75 mL Oral: No COMPARISON: CT CT ABDOMEN PELVIS W from 10/13/2023 FINDINGS: The examination is limited due to patient motion artifact. ABDOMEN: Lung Bases: Coronary artery calcifications are present. Liver: Normal density. No measurable mass. Portal, Superior Mesenteric, and Splenic Veins: Unremarkable. There are numerous venous collaterals again seen in the right upper quadrant. This is stable. Gallbladder and Biliary Tract: Cholelithiasis. There is no biliary ductal dilatation. The gallbladder is contracted. Pancreas: Normal density, no abnormal calcifications or inflammatory process. Spleen: Normal. Adrenals: No masses seen. Kidneys: There is bilateral renal cortical scarring present. There is a nonobstructing stone seen in the left kidney. There are bilateral simple renal cysts. No follow-up is recommended. There is a retroaortic left renal vein. Abdominal Aorta: Abdominal portion non-dilated. Atherosclerotic calcification is present. Bowel: There is bowel wall thickening seen in the distal sigmoid colon. Colonic diverticula are still present throughout the colon. The findings are suspicious for acute diverticulitis. Pericolonic inflammatory changes are seen. There is no evidence of bowel obstruction. No other bowel wall thickening is appreciated. There is no evidence of appendicitis. Peritoneal Cavity: No significant ascites, collection or mesenteric inflammatory response. No free air. Lymph Nodes: Within normal limits. Bones: Within normal limits for the patient's age. Soft Tissues: There are small fat containing left inguinal hernia. PELVIS: Bladder: Symmetric distention, no gross wall thickening. Reproductive Organs: Unremarkable as visualized. Lymph Nodes: Within normal limits. Bones: Within normal limits for the patient's age. IMPRESSION: 1. Findings consistent with acute diverticulitis. No abscess or free air. 2. Stable incidental findings in the abdomen and pelvis as described above. 3. The preliminary [facility] report was reviewed. RADIATION DOSE DELIVERED: 556.86mGy.cm Total DLP DATA REPOSITORY: All CT scans at this facility are submitted to the National Radiology Data Registry (NRDR) Dose Index Registry (DIR) with the [employer] (ACR). RADIATION OPTIMIZATION: All CT scans at this facility use at least one of these dose optimization techniques: automated exposure control; mA and/or kV adjustment per patient size (includes targeted exams where dose is matched to clinical indication); or iterative reconstruction.
--- NOTE | 2024-11-06 16:13 | ED.GENADUL_ITS ---
Discharge Plan Disposition Patient Disposition: Admit to [facility] Discharge Details Clinical Impression: Neutropenia, Diverticulitis Admit Date/Time: 11/06/24 21:53 Admit Provider: Joaquin Camejo Attending Provider: Joaquin Camejo Primary Care Provider: Hiwot Tena ED Provider: Clarice Anderson HPI General Date/Time Provider Initiated Documentation: 11/06/24 15:22 . HPI Narrative: Willard is a 74-year-old male who presents to the emergency department today for lower abdominal cramping pain (described as dull and constant) accompanied by constipation x 3 to 4 days. Today developed fever and anorexia Approximately 3-4 days ago, he felt the urge to defecate but was unable to pass more than a small stool at a time. Since then, he has had a constant urge to defecate, producing only small amounts of liquid and loose stool each time. Last night, he woke up every hour to use the bathroom, disrupting his sleep. This morning, he had a fever of 103?F and a headache, which he attributes to lack of sleep. Despite these symptoms, he maintained his usual routine the previous days. Today has had anorexia, has not eaten all day due to low appetite. Denies congestion, sore throat, cough, chest pain, dyspnea, nausea/vomiting, unusual back pain or leg weakness/numbness, dysuria, change in bladder function, black/tarry/sticky stools.He has been massaging his stomach to alleviate discomfort. PAST MEDICAL HISTORY: CKD stage III, carotid stenosis, HTN, HLD, BPH PAST SURGICAL HISTORY: Appendectomy in childhood. Has had regular colonoscopies in the past, + polyps and diverticulosis Related Data Home Medications ?Medication ?Instructions ?Recorded ?Confirmed aspirin 81 mg capsule 81 mg PO DAILY 11/17/2310/25 amlodipine 10 mg-olmesartan 20 mg 1 tab PO DAILY #90 t abs 04/26/24 11/06/24 tablet atorvastatin 20 mg tablet 20 mg PO DAILY cholesterol # 90 04/26/24 11/06/24 tab-caps Previous Rx's ?Medication ?Instructions ?Recorded amlodipine 10 mg-olmesartan 20 mg 1 tab PO DAILY #90 t abs 04/26/24 tablet atorvastatin 20 mg tablet 20 mg PO DAILY cholesterol # 90 04/26/24 tab-caps Allergies Allergy/AdvReac Type Severity Reaction Status Date / Time No Known Allergies Allergy Verified 11/06/24 15:31 General Stated Complaint: Abd Prob RADHA: 3 Exam Narrative Exam Narrative: General Appearance: Normal. Patient is alert and oriented, no acute distress. Vital signs: Mild hypertension and tachycardia noted, heart rate 105. Fever noted of 37.9. HEENT: Moist mucous membranes Cardiac: Regular heart sounds, mild tachycardia no Respiratory: Easy work of breathing, lung sounds clear bilaterally Gastrointestinal: Tenderness across lower abdomen without lumps or bulges. Abdomen is soft, normoactive bowel sounds, no rigidity or guarding. No overlying skin changes or ecchymosis. 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 No fecal impaction noted. No blood on glove. Skin: Warm and dry, no rash. Psychiatric: Normal. Course Vital Signs Vital signs: Vital Signs Temperature 37.9 C H 11/06/24 15:26 Pulse 105 H 11/06/24 15:26 Respiratory Rate 16 11/06/24 15:26 Blood Pressure 160/73 H 11/06/24 15:26 Pulse Oximetry 95 11/06/24 15:26 Temperature 37.9 C H 11/06/24 15:35 Temperature Source Oral 11/06/24 15:35 Pulse 105 H 11/06/24 15:35 Respiratory Rate 16 11/06/24 15:35 Blood Pressure 160/73 H 11/06/24 15:35 Blood Pressure Position Sitting 11/06/24 15:35 Pulse Oximetry 95 11/06/24 15:35 Oxygen Delivery Method Room Air 11/06/24 15:35 Oxygen Flow Rate 0 11/06/24 15:35 Pain Level 4 11/06/24 15:35 Medical Decision Making Initial Assessment: 74-year-old male with recent onset of constipation, incomplete bowel movements, small amounts of liquid and stool, dull constant pain above groin, and fever of 103?F. Differential Diagnosis includes but is not limited to: Constipation, diverticulitis, stercoral colitis, partial bowel obstruction, neoplasm, UTI, atypical presentation of nephrolithiasis. Low suspicion for appendicitis based on history of appendectomy ED Course: - Vital signs: Fever 103?F. - Physical exam: Tenderness in lower abdomen, no lumps or bulges. - Rectal exam: No fecal impaction noted. - CT scan of abdomen and pelvis ordered. - Blood work: CBC, liver function tests. Independently interpreted the following tests: (Neutrophils 0.06, followed by 0.00 on confirmatory test); mild anemia noted with H&H 11.5 and 33.3. CMP, lactate, lipase, TSH all unremarkable aside from elevated total bilirubin of 1.6. Mild hypomagnesemia, magnesium 1.7. CRP elevated at 4.86, sed rate slightly elevated at 22. UA reassuring. While in the emergency department Willard remained n.p.o. 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 Rolon. Reviewed patient presentation and labs. She recommends evaluating for viral panel/EBV/hepatitis/HIV, as well as inflammatory markers (CRP/sed rate). CBC to be rechecked in morning. She recommends coverage for antifungal with fluconazole 20 mg x 1, antiviral with acyclovir 400 mg twice daily, as well as Zosyn IV for antibiotic coverage. Final Assessment: Diverticulitis with new onset neutropenia Disposition: Admit for further workup of neutropenia/management of diverticulitis Follow-Up: Repeat CBC in morning, with hematology consult Presented case to Dr. Camejo, hospitalist. Patient to be admitted to [facility] unit for further evaluation/workup. Patient consented to the use of [facility] PFSH All Active Problems (Updated 11/06/24 @ 22:55 by Clarice Reyes) Diverticulitis (Chronic) Neutropenia (Acute) Elevated TSH (Acute) CKD stage 3a, GFR 45-59 ml/min (Acute) Left shoulder strain (Acute) Sprain of anterior talofibular ligament of right ankle (Acute 01/28/24) Encounter for screening colonoscopy (Acute) Carotid stenosis, bilateral (Acute ~10/2023) 11/16/23 Cardiology Elevated PSA (Acute) Anemia (Chronic) Eczema (Acute) History of colon polyps (Acute) Malignant melanoma (Acute) Back Essential hypertension (Acute 12/08/12) Hypercholesterolemia (Acute) Elevated fasting glucose (Acute) [place] cardiac risk 10-20% in next 10 years (Acute 07/03/15) 16.4% Skin cancer (Chronic 07/28/12) hx SCCa, Basal cell ca, melanoma in situ. 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 mccurdy [facility] Surgical History (Updated 11/30/23 @ 10:35 by Elyssa Weiner) History of colonoscopy (~11/2023) Status post tonsillectomy Status post surgical removal of malignant neoplasm of skin 12/24/17 excision of melanoma RUE Status post appendectomy S/P skin biopsy (08/30/19) Dorsum of R hand [facility] derm Dr Wright blepharoplasty Colonoscopy - IV Sedation (09/2020) Arthroplasty of knee Family History Father Essential hypertension Heart disease Brother Prostate cancer Colon cancer Other Lung cancer Social History (Updated 10/25/24 @ 08:44 by Thu Washburn LPN) Smoking/Tobacco Use Status: Never Smoking risk assessment performed?: Yes Alcohol Intake: current Alcohol Intake frequency: 0-2 drinks per day Alcohol type: beer Drug use: Occasionally Substance use type: marijuana Details: Pt smokes marijuana occasionally 11/06/24 Adopted: No Caregiver/Support person: No Foster care: No Household members: spouse Housing: house Number of Children: 2 number of grandchildren: 0 Communication Needs: None 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) Sexually active: Yes Do you think of yourself as: straight/heterosexual Current gender identity: male What is your relationship status?: How often do you talk on the phone with friends or family?: twice per week How often do you get together with friends or relatives?: twice per week Panel score (0-1 are the most socially isolated patients): 2 What type of physical activity do you participate in: regular exercise Frequency: 5-6 times per week Seatbelt use: always Drive intox or ride w/intox 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 PAWSS Have you Been Recently Intoxicated or Drunk Within the Last 30 days?: No Have you Ever Experienced Previous Episodes of Alcohol Withdrawal?: No Have you ever Experienced Withdrawal Seizures?: No Have you ever Experienced Delirium Tremens(DT)s?: No Have you ever undergone Alcohol Rehabilitation Treatment (i.e, inpt ot outpatient treatment programs)?: No Have you ever Experienced Blackouts?: No Have you ever Combined Alcohol with other Downers within the last 90 days?: No Have you ever Combined Alcohol with any other Substance of Abuse during the last 90 days?: No Positive Blood Alcohol level on Presentation? [PCS.BAL]: Unable to Obtain Evidence of Increased Autonomic Activity (i.e. HR>120, tremor, sweating, agitation, nausea)?: No Result: 0
[2024-11-06] MEDS: ACETAMINOPHEN 1,000 MG/100 ML BAG 400 MG IVPB (16:24)
[2024-11-06] MEDS: Normal Saline 1,000 ML 500 ML IV (16:25)
[2024-11-06] MEDS: Ketorolac 15 MG/ML VIAL IVP (16:25)
[2024-11-06 16:26] LABS: Abs Immature Grans 0.01 10^3/uL (0.0-0.06); HCT 40.5 % (40.0-50.0); HGB 13.7 g/dL (13.5-17.5); MCH 31.9 pg (27.0-33.0); MCHC 33.8 % (32.0-36.0); MCV 94 fL (80-95); MPV 11.6 fL (8.0-11.0); RBC 4.30 10^6/uL (4.36-5.78); RDW 12.2 % (11.8-14.1); RDW-SD 42.3 fL; WBC 2.16 10^3/uL (4.4-10.8)
[2024-11-06 16:43] LABS: Immature Grans % 0.0 %
[2024-11-06 16:44] LABS: RBC Morphology Normal
[2024-11-06 16:45] LABS: Platelet Count 147 10^3/uL (130-400)
[2024-11-06 16:52] LABS: ALT 32 U/L (16-63); AST 33 U/L (15-37); Albumin 4.3 g/dL (3.4-5.0); Alkaline Phosphatase 85 U/L (46-116); Anion Gap 11.5 mmol/L (3-11); BUN 16 mg/dL (7-18); Bilirubin, Total 1.6 mg/dL (0.2-1.0); CO2 26.5 mmol/L (21.0-32.0); Calcium 9.4 mg/dL (8.5-10.1); Chloride 101 mmol/L (98-107); Estimated GFR 58.37 (mL/min/1.73m2); Glucose 109 mg/dL (74-106); Lipase 37 U/L (<78); Magnesium 1.7 mg/dL (1.8-2.4); Potassium 3.7 mmol/L (3.5-5.1); Sodium 139 mmol/L (136-145); TSH (W/Ref FT4) 2.36 uIU/mL (0.36-3.74); Total Protein 8.4 g/dL (6.4-8.2)
[2024-11-06] MEDS: Omnipaque 350 MG/ML 100 ML BTL IJ (17:31)
[2024-11-06] MEDS: Normal Saline - Diluent 50 ML VIAL IJ (17:32)
[2024-11-06 18:09] LABS: Glucose Negative (Negative)
--- NOTE | 2024-11-06 18:35 | DI.[facility]AD_ITS ---
PROCEDURE INFORMATION: Exam: CT Abdomen And Pelvis With Contrast Exam date and time: 11/06/2024 5:22 PM Age: 74 years old Clinical indication: Other: Constipation, lower abd pain, fever TECHNIQUE: Imaging protocol: Computed tomography of the abdomen and pelvis with contrast. Radiation optimization: All CT scans at this facility use at least one of these dose optimization techniques: automated exposure control; mA and/or kV adjustment per patient size (includes targeted exams where dose is matched to clinical indication); or iterative reconstruction. Contrast material: OMNI 350; Contrast volume: 75 ml; Contrast route: INTRAVENOUS (IV); COMPARISON: CT ABDOMEN PELVIS W 10/13/2023 9:45 AM FINDINGS: Lungs: Lung bases clear. Liver: Normal appearing liver. Gallbladder and biliary ducts: Gallbladder almost completely decompressed. Calcified gallstones. No biliary dilatation. Pancreas: Normal appearing pancreas. Spleen: Normal appearing spleen. Adrenal glands: Normal appearing adrenal glands. Kidneys and ureters: Bilateral renal cortical scarring, worse on the right. Bilateral parapelvic renal cysts, larger on the left. 1.5 cm right lower pole renal cyst measuring 17 Hounsfield units density on image 55 of series 9. No hydronephrosis. No obstructing ureteral stones. Stomach and bowel: No oral contrast. Stomach partially decompressed. No small bowel dilatation to suggest obstruction. Sigmoid diverticulosis. Prominent mural thickening through the mid sigmoid region with adjacent hazy fat stranding in keeping with acute diverticulitis. Trace adjacent fluid. No frankly organized fluid collection. Appendix: Appendix not identified, obscured if present. Correlation with surgical history recommended. If there is clinical concern for acute appendicitis and the patient still has an appendix, additional evaluation would be recommended. Intraperitoneal space: Trace free pelvic fluid. No free air. No frankly organized fluid collection. Vasculature: Normal caliber abdominal aorta. The inferior vena cava appears partially interrupted near the level of the renal veins. There is a dilated tortuous network of collateral venous structures in the expected location of the inferior vena cava which partially drains through the inferior vena cava and partially through the azygous/hemiazygous system, stable compared with the prior exam from October 13, 2023. The renal veins drain into this network. Lymph nodes: No pathologically enlarged mesenteric, retroperitoneal, or pelvic sidewall lymph nodes. Urinary bladder: Urinary bladder partially collapsed but grossly unremarkable, as seen. Reproductive: Normal-appearing prostate gland and seminal vesicles. Bones/joints: No acute fracture seen among the bones of the abdomen or pelvis. Given 5 [id number] lumbar vertebral bodies, small vestigial ribs at T12 and a transitional L5 vertebral body which is hemisacralized on the right. Spinal degenerative change with discogenic degeneration, endplate irregularities, and anterior osteophytes at multiple levels. Bilateral facet arthrosis in the lower lumbar spine. Soft tissues: Small fat containing left inguinal region hernia. IMPRESSION: 1. Acute sigmoid diverticulitis. 2. 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 Dictated and Authenticated by: Pedro Garrison MD. Orderin Rafael Oneil MD
--- NOTE | 2024-11-06 18:54 | DI.RAD_ITS ---
Exam(s) XR CHEST 2V PA LATERAL EXAM: XR CHEST 2V PA LATERAL CLINICAL HISTORY: eval neutropenia TECHNIQUE: 2D digital imaging was performed of the chest. Two images were obtained. PA and lateral views were obtained. COMPARISON: CR XR shoulder RT complete 2+V from 05/20/2018 FINDINGS: MEDIASTINUM: Normal. HEART: Normal. PULMONARY VASCULATURE: Normal. LUNGS: Clear. PLEURAL SPACE: No pleural effusion or pneumothorax. BONE:Within normal limits for the patient's age. OTHER FINDINGS:Normal. IMPRESSION: No acute pulmonary findings. DATA REPOSITORY: RADIATION DOSE DELIVERED:
[2024-11-06 18:55] LABS: Abs Immature Grans 0.01 10^3/uL (0.0-0.06); HCT 33.3 % (40.0-50.0); HGB 11.5 g/dL (13.5-17.5); MCH 31.9 pg (27.0-33.0); MCHC 34.5 % (32.0-36.0); MCV 92 fL (80-95); MPV 11.9 fL (8.0-11.0); Platelet Count 137 10^3/uL (130-400); RBC 3.61 10^6/uL (4.36-5.78); RDW 12.1 % (11.8-14.1); RDW-SD 41.3 fL; WBC 2.21 10^3/uL (4.4-10.8)
[2024-11-06 19:12] LABS: Immature Grans % 0.0 %
[2024-11-06 19:13] LABS: RBC Morphology Normal
--- NOTE | 2024-11-06 20:34 | DI.VRAD_ITS ---
PROCEDURE INFORMATION: Exam: XR Chest Exam date and time: 11/06/2024 8:10 PM Age: 74 years old Clinical indication: Other: Eval neutropenia TECHNIQUE: Imaging protocol: Radiologic exam of the chest. Views: 2 views. COMPARISON: CT ABDOMEN PELVIS W 11/06/2024 5:22 PM FINDINGS: Lungs: No pulmonary consolidation is seen. Pleural spaces: No pleural effusion or pneumothorax is demonstrated. Heart/Mediastinum: The heart appears normal in size. Bones/joints: The visualized bony structures appear grossly intact. There is anterior vertebral wedging in the midthoracic region. There are anterior osteophytes at several thoracic vertebral levels. IMPRESSION: No active disease is seen in the chest. Dictated and Authenticated by: Pedro Garrison MD. Orderin Rafael Oneil MD
[2024-11-06] MEDS: Acyclovir 400 MG TAB PO (21:14)
[2024-11-06] MEDS: PIPERACILLIN/TAZO 4.5 GM in Normal Saline 100 ML IVPB (21:14)
[2024-11-06 21:21] LABS: ESR 22 mm/hr (0-20)
[2024-11-06 21:32] LABS: C-Reactive Protein 4.86 mg/dL (<or=0.5)
[2024-11-06 21:44] LABS: Mono Screening Negative (Negative)
[2024-11-06] MEDS: FLUCONAZOLE 200 MG/100 ML BAG 100 MG IVPB (21:55)
--- NOTE | 2024-11-06 21:58 | HPE_ITS ---
Date of service: 11/06/24 Time of Service: 21:00 Assessment and Plan Assessment and plan (1) Febrile neutropenia: Status: Acute Assessment and plan: ANC of zero with fever 100, etiology unclear Patient denies recent illness, no recent travel, no sick contacts No recent weight loss, night sweats, fatigue Per [facility] hematology, serologies have been ordered Fluconazole 20 mg x 1 given in ED Continue zosyn, acyclovir 400 mg BID Neutropenic precautions, neutropenic diet Morning CBC, follow up with [facility] Hold VTE chemoprophylaxis (2) Sigmoid diverticulitis: Status: Acute Assessment and plan: Possibly secondary to viral enteritis PRN antiemetics, PRN narcotics (3) Benign essential hypertension: Status: Acute Assessment and plan: Continue home amlodipine / olmesartan (anticipate substitution) (4) HLD (hyperlipidemia): Status: Acute Assessment and plan: Hold statin (5) CKD stage 3a, GFR 45-59 ml/min: Status: Acute Assessment and plan: At baseline History of Present Illness History of Present Illness Chief Complaint: abdominal pain Narrative: Willard Montague is a 74 year old man presenting November 06 with a few days of worsening crampy lower abdominal pain with tenesmus and constipation. On day of presentation, he became febrile to 103, and had no appetite. He has been unable to sleep due to frequent need to defecate, producing only small liquid/loose stools. He has continued with normal activities until today. He has out of state travel planned for the end of the week and wanted to plow through any symptoms. No shortness of breath, no chest pain, no nausea/vomiting. No B symtoms. PMH includes HTN, HLD, BPH, carotid stenosis, CKD/III, appendectomy, diverticulosis. In the ED he was febrile 37.9, tachycaqrdic 105, hypertensive 160/73. CBC with very low absolute neutrophils 0.06 and leukopenia 2.16. Low magnesium 1.7. 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 CXR unremarkable. CBC was repeated, confirming neutropenia with ANC of zero. [facility] hematology was called and recommended viral serologies, inflammatory markers, and initiation of antimicrobials. PFSH All Active Problems (Updated 11/07/24 @ 02:07 by Joaquin Camejo MD) HLD (hyperlipidemia) (Acute) Benign essential hypertension (Acute) Sigmoid diverticulitis (Acute) Febrile neutropenia (Acute) Diverticulitis (Chronic) Neutropenia (Acute) Elevated TSH (Acute) CKD stage 3a, GFR 45-59 ml/min (Acute) Left shoulder strain (Acute) Sprain of anterior talofibular ligament of right ankle (Acute 01/28/24) Encounter for screening colonoscopy (Acute) Carotid stenosis, bilateral (Acute ~10/2023) 11/16/23 Cardiology Elevated PSA (Acute) Anemia (Chronic) Eczema (Acute) History of colon polyps (Acute) Malignant melanoma (Acute) Back Essential hypertension (Acute 12/08/12) Hypercholesterolemia (Acute) Elevated fasting glucose (Acute) [place] cardiac risk 10-20% in next 10 years (Acute 07/03/15) 16.4% Skin cancer (Chronic 07/28/12) hx SCCa, Basal cell ca, melanoma in situ. 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 mccurdy [facility] Surgical History (Updated 11/30/23 @ 10:35 by Elyssa Weiner) History of colonoscopy (~11/2023) Status post tonsillectomy Status post surgical removal of malignant neoplasm of skin 12/24/17 excision of melanoma RUE Status post appendectomy S/P skin biopsy (08/30/19) Dorsum of R hand [facility] derm Dr Wright blepharoplasty Colonoscopy - IV Sedation (09/2020) Arthroplasty of knee Family History Father Essential hypertension Heart disease Brother Prostate cancer Colon cancer Other Lung cancer Social History (Updated 10/25/24 @ 08:44 by Thu Washburn LPN) Smoking/Tobacco Use Status: Never Smoking risk assessment performed?: Yes Alcohol Intake: current Alcohol Intake frequency: 0-2 drinks per day Alcohol type: beer Drug use: Occasionally Substance use type: marijuana Details: Pt smokes marijuana occasionally 11/06/24 Adopted: No Caregiver/Support person: No Foster care: No Household members: spouse Housing: house Number of Children: 2 number of grandchildren: 0 Communication Needs: None 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) Sexually active: Yes Do you think of yourself as: straight/heterosexual Current gender identity: male What is your relationship status?: How often do you talk on the phone with friends or family?: twice per week How often do you get together with friends or relatives?: twice per week Panel score (0-1 are the most socially isolated patients): 2 What type of physical activity do you participate in: regular exercise Frequency: 5-6 times per week Seatbelt use: always Drive intox or ride w/intox route delivery service 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 Meds Allergies and Home Medications Allergies Allergy/AdvReac Type Severity Reaction Status Date / Time No Known Allergies Allergy Verified 11/06/24 15:31 Home Medications ?Medication ?Instructions ?Recorded ?Confirmed ?Type aspirin 81 mg capsule 81 mg PO DAILY 11/17/2310/25 History amlodipine 10 mg-olmesartan 20 mg 1 tab PO DAILY #90 t abs 04/26/24 11/06/24 Rx tablet atorvastatin 20 mg tablet 20 mg PO DAILY cholesterol # 90 04/26/24 11/06/24 Rx tab-caps Exam Narrative Exam Narrative: General: This is a very pleasant, well-nourished man in no distress HEENT: Normocephalic, atraumatic CV: Tachycardic, regular rhythm, no murmur Resp: CTAB Abd: Diffuse tenderness RLQ/LLQ, no masses. +NBS Skin: Warm and dry, without rashes nor lesions Neuro: Awake and alert, no focal deficits Results Imaging Imaging Studies: * * * * * Exam: CT Abdomen And Pelvis With Contrast Exam date and time: 11/06/2024 5:22 PM IMPRESSION: 1. Acute sigmoid diverticulitis. 2. 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 Dictated and Authenticated by: Pedro Garrison MD. * * * * * Exam: XR Chest Exam date and time: 11/06/2024 8:10 PM IMPRESSION: No active disease is seen in the chest. Dictated and Authenticated by: Pedro Garrison MD * * * * * Labs 11/06/24 18:49 11/06/24 16:21 Labs: Laboratory Results - last 24 hr 11/06/24 11/06/24 11/06/24 16:21 18:05 18:49 WBC 2.16 L 2.21 L RBC 4.30 L 3.61 L Hgb 13.7 11.5 L D Hct 40.5 33.3 L MCV 94 92 MCH 31.9 31.9 MCHC 33.8 34.5 RDW 12.2 12.1 Plt Count 147 137 MPV 11.6 H 11.9 H Immature Gran % 0.0 0.0 Neutrophils % 3.0 0.0 Lymphocytes % 57.0 66.0 Atypical Lymphs % 2 3 Monocytes % 36.0 29.0 Eosinophils % 0.0 1.0 Basophils % 2.0 1.0 Nucleated RBC % 0.0 0.0 Absolute Neutrophils 0.06 L* 0.00 L* Absolute Lymphocytes 1.27 1.52 Absolute Monocytes 0.78 0.64 Absolute Eosinophils 0.00 0.02 Absolute Basophils 0.04 0.02 RBC Morphology Normal Normal ESR VBG Lactate 1.4 Sodium 139 Potassium 3.7 Chloride 101 Carbon Dioxide 26.5 Anion Gap 11.5 H BUN 16 Creatinine 1.3 Est GFR (CKD-EPI 2020) 58.37 Glucose 109 H Calcium 9.4 Magnesium 1.7 L Total Bilirubin 1.6 H AST 33 ALT 32 Alkaline Phosphatase 85 C-Reactive Protein Total Protein 8.4 H Albumin 4.3 Lipase 37 TSH 2.36 Urine Color Yellow Urine Clarity Clear Urine pH 6.0 Ur Specific [place] 1.015 Urine Protein Negative Urine Ketones 15 H Urine Blood Negative Urine Nitrite Negative Urine Bilirubin Negative Urine Urobilinogen 0.2 Ur Leukocyte Esterase Negative Urine Glucose Negative Monoscreen 11/06/24 21:05 WBC RBC Hgb Hct MCV MCH MCHC RDW Plt Count MPV Immature Gran % Neutrophils % Lymphocytes % Atypical Lymphs % Monocytes % Eosinophils % Basophils % Nucleated RBC % Absolute Neutrophils Absolute Lymphocytes Absolute Monocytes Absolute Eosinophils Absolute Basophils RBC Morphology ESR 22 H VBG Lactate Sodium Potassium Chloride Carbon Dioxide Anion Gap BUN Creatinine Est GFR (CKD-EPI 2020) Glucose Calcium Magnesium Total Bilirubin AST ALT Alkaline Phosphatase C-Reactive Protein 4.86 H Total Protein Albumin Lipase TSH Urine Color Urine Clarity Urine pH Ur Specific [place] Urine Protein Urine Ketones Urine Blood Urine Nitrite Urine Bilirubin Urine Urobilinogen Ur Leukocyte Esterase Urine Glucose Monoscreen Negative Last Vital Signs Temp 36.8 C 11/06/24 21:46 Pulse 87 11/06/24 21:46 Resp 19 11/06/24 21:46 BP 129/89 11/06/24 21:46 Pulse Ox 97 11/06/24 21:46 PAWSS Have you Been Recently Intoxicated or Drunk Within the Last 30 days?: No Have you Ever Experienced Previous Episodes of Alcohol Withdrawal?: No Have you ever Experienced Withdrawal Seizures?: No Have you ever Experienced Delirium Tremens(DT)s?: No Have you ever undergone Alcohol Rehabilitation Treatment (i.e, inpt ot outpatient treatment programs)?: No Have you ever Experienced Blackouts?: No Have you ever Combined Alcohol with other Downers within the last 90 days?: No Have you ever Combined Alcohol with any other Substance of Abuse during the last 90 days?: No Positive Blood Alcohol level on Presentation? [PCS.BAL]: Unable to Obtain Evidence of Increased Autonomic Activity (i.e. HR>120, tremor, sweating, agitation, nausea)?: No Result: 0 Time Spent Time spent with Patient: >75 minutes Time was spent: preparing to see the patient(eg.review tests), obtaining and/or reviewing separately otained hiistory, ordering medications,tests, procedures, referring, communicating with other health care worker, indepentently interpreting results, counseling the patient and care coordination
[2024-11-06 22:47] LABS: COVID-19 PCR Negative (Negative); RSV PCR Negative (Negative)
[2024-11-07] VITALS (13 sets, daily range): BP systolic 139–152; BP diastolic 61–78; PULSE 79–102; RESP 15–24; TEMP 37–37.9; O2SAT 97–99
--- NOTE | 2024-11-07 01:14 | W.PC.ACHO ---
Registration Status: ADM IN Primary Language: Preferred Language: Bulgarian ED Information & Data Chief Complaint Abd Prob 11/06/24 16:18 Triage Note Pt arrives to ED c/o 11/06/24 15:26 difficulty with BMs x a few days. Pt endorses significant constipation. Pt states he is having lower abd cramping, tries to have a BM and only passes small amounts of stool. No blood in stool per pt. Denies dysuria. 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) Ptosis of eyelid (07/28/12) Squamous cell carcinoma of skin of left cheek (10/27/16) (Last Updated 11/30/23 @ 10:35 by Elyssa Weiner) History of colonoscopy (~11/2023) Status post tonsillectomy Status post surgical removal of malignant neoplasm of skin Status post appendectomy S/P skin biopsy (08/30/19) blepharoplasty Colonoscopy - IV Sedation (09/2020) Arthroplasty of knee Most Recent Vital Signs Temperature 36.8 C 11/06/24 21:46 Temperature Source Oral 11/06/24 15:35 Pulse 90 11/06/24 22:30 Pulse 83 11/06/24 22:02 Respiratory Rate 18 11/06/24 22:02 Blood Pressure 162/72 H 11/06/24 22:30 Blood Pressure Mean 105 11/06/24 22:30 Blood Pressure Position Sitting 11/06/24 15:35 Pulse Oximetry 97 11/06/24 22:30 Oxygen Delivery Method Room Air 11/06/24 18:51 Oxygen Flow Rate 0 11/06/24 18:51 Pain Level 4 11/06/24 15:35 Allergies No Known Allergies Allergy (Verified 11/06/24 15:31) Precautions Isolation Standard precaution 11/06/24 15:32 Active Medications Generic Name Dose Route Start Last Admin Trade Name [place] PRN Reason Stop Dose Admin Iohexol 100 ml 11/06/24 17:45 11/06/24 17:31 Omnipaque 350 Mg/Ml 100 Ml Btl IJ 12/06/24 23:59 75 ml DIRECTED HORTENSIA Administration Sodium Chloride 0 ml 11/06/24 20:00 11/06/24 23:35 Normal Saline Flush 10 Ml Syr IVP Not Given BID HORTENSIA Sodium Chloride 50 ml 11/06/24 17:45 11/06/24 17:32 Normal Saline - Diluent 50 Ml Vial IJ 50 ml .FOR DI USE HORTENSIA Administration IV IV Catheter Type [Left Peripheral IV Antecubital] IV Catheter Gauge [Left 18 Antecubital] Diet Orders Category Date Time Status Regular/Normal [DIET] Nutrition 11/07/24 Breakfast Active Diagnostics 11/07/24 11/06/24 11/06/24 Range/Units 05:35 22:05 21:05 WBC Pending (4.4-10.8) 10^3/uL RBC Pending (4.36-5.78) 10^6/uL Hgb Pending (13.5-17.5) g/dL Hct Pending (40.0-50.0) % MCV Pending (80-95) fL MCH Pending (27.0-33.0) pg MCHC Pending (32.0-36.0) % RDW Pending (11.8-14.1) % Plt Count Pending (130-400) 10^3/uL MPV Pending (8.0-11.0) fL Immature Gran % Pending % Neutrophils % Pending % Lymphocytes % Pending % Atypical Lymphs % % Monocytes % Pending % Eosinophils % Pending % Basophils % Pending % Nucleated RBC % (0.0-0.3) % Absolute Neutrophils Pending (1.2-6.7) 10^3/uL Absolute Lymphocytes Pending (1.2-3.4) 10^3/uL Absolute Monocytes Pending (0.1-0.8) 10^3/uL Absolute Eosinophils Pending (0.0-0.7) 10^3/uL Absolute Basophils Pending (0.0-0.2) 10^3/uL RBC Morphology ESR 22 H (0-20) mm/hr PT Pending INR Pending VBG Lactate (<or=2.0) mmol/L Sodium Pending (136-145) mmol/L Potassium Pending (3.5-5.1) mmol/L Chloride Pending (98-107) mmol/L Carbon Dioxide Pending (21.0-32.0) mmol/L Anion Gap Pending (3-11) mmol/L BUN Pending (7-18) mg/dL Creatinine Pending (0.70-1.30) mg/dL Est GFR (CKD-EPI 2020) Pending (mL/min/1.73m2) Glucose Pending (74-106) mg/dL Calcium Pending (8.5-10.1) mg/dL Magnesium Pending (1.8-2.4) mg/dL Total Bilirubin Pending (0.2-1.0) mg/dL AST Pending (15-37) U/L ALT Pending (16-63) U/L Alkaline Phosphatase Pending (46-116) U/L C-Reactive Protein 4.86 H (<or=0.5) mg/dL Total Protein Pending (6.4-8.2) g/dL Albumin Pending (3.4-5.0) g/dL Lipase (<78) U/L TSH (0.36-3.74) uIU/mL Urine Color (Yellow) Urine Clarity (Clear) Urine pH (5-8) Ur Specific [place] (1.005-1.025) Urine Protein (Neg-Trace) mg/dL Urine Ketones (Negative) mg/dL Urine Blood (Negative) Urine Nitrite (Negative) Urine Bilirubin (Negative) Urine Urobilinogen (Up to 0.2) mg/dL Ur Leukocyte Esterase (Negative) Urine Glucose (Negative) mg/dL B. divergens/MO-1 PCR Babesia duncani (PCR) Babesia microti DNA PCR Lyme Disease Antibody COVID-19 Source Nasopharynx SARS-CoV-2 (PCR) Negative (Negative) E.chaffeensis DNA (PCR) E.ewingii/canis DNA PCR E.muris eauclairensis (PCR) Hepatitis A IgM Ab Pending Hep Bs Antigen Pending Hep B Core Total Ab Pending Hepatitis C Antibody Pending Monoscreen Negative (Negative) HIV 1&2 Ag/Ab, 4th Gen Pending Influenza Type A (PCR) Negative (Negative) Influenza Type B (PCR) Negative (Negative) RSV (PCR) Negative (Negative) A. phagocytophilum (PCR) Blood B. caroli (PCR) 11/06/24 11/06/24 11/06/24 Range/Units 18:49 18:05 16:21 WBC 2.21 L 2.16 L (4.4-10.8) 10^3/uL RBC 3.61 L 4.30 L (4.36-5.78) 10^6/uL Hgb 11.5 L D 13.7 (13.5-17.5) g/dL Hct 33.3 L 40.5 (40.0-50.0) % MCV 92 94 (80-95) fL MCH 31.9 31.9 (27.0-33.0) pg MCHC 34.5 33.8 (32.0-36.0) % RDW 12.1 12.2 (11.8-14.1) % Plt Count 137 147 (130-400) 10^3/uL MPV 11.9 H 11.6 H (8.0-11.0) fL Immature Gran % 0.0 0.0 % Neutrophils % 0.0 3.0 % Lymphocytes % 66.0 57.0 % Atypical Lymphs % 3 2 % Monocytes % 29.0 36.0 % Eosinophils % 1.0 0.0 % Basophils % 1.0 2.0 % Nucleated RBC % 0.0 0.0 (0.0-0.3) % Absolute Neutrophils 0.00 L* 0.06 L* (1.2-6.7) 10^3/uL Absolute Lymphocytes 1.52 1.27 (1.2-3.4) 10^3/uL Absolute Monocytes 0.64 0.78 (0.1-0.8) 10^3/uL Absolute Eosinophils 0.02 0.00 (0.0-0.7) 10^3/uL Absolute Basophils 0.02 0.04 (0.0-0.2) 10^3/uL RBC Morphology Normal Normal ESR (0-20) mm/hr PT INR VBG Lactate 1.4 (<or=2.0) mmol/L Sodium 139 (136-145) mmol/L Potassium 3.7 (3.5-5.1) mmol/L Chloride 101 (98-107) mmol/L Carbon Dioxide 26.5 (21.0-32.0) mmol/L Anion Gap 11.5 H (3-11) mmol/L BUN 16 (7-18) mg/dL Creatinine 1.3 (0.70-1.30) mg/dL Est GFR (CKD-EPI 2020) 58.37 (mL/min/1.73m2) Glucose 109 H (74-106) mg/dL Calcium 9.4 (8.5-10.1) mg/dL Magnesium 1.7 L (1.8-2.4) mg/dL Total Bilirubin 1.6 H (0.2-1.0) mg/dL AST 33 (15-37) U/L ALT 32 (16-63) U/L Alkaline Phosphatase 85 (46-116) U/L C-Reactive Protein (<or=0.5) mg/dL Total Protein 8.4 H (6.4-8.2) g/dL Albumin 4.3 (3.4-5.0) g/dL Lipase 37 (<78) U/L TSH 2.36 (0.36-3.74) uIU/mL Urine Color Yellow (Yellow) Urine Clarity Clear (Clear) Urine pH 6.0 (5-8) Ur Specific [place] 1.015 (1.005-1.025) Urine Protein Negative (Neg-Trace) mg/dL Urine Ketones 15 H (Negative) mg/dL Urine Blood Negative (Negative) Urine Nitrite Negative (Negative) Urine Bilirubin Negative (Negative) Urine Urobilinogen 0.2 (Up to 0.2) mg/dL Ur Leukocyte Esterase Negative (Negative) Urine Glucose Negative (Negative) mg/dL B. divergens/MO-1 PCR Pending Babesia duncani (PCR) Pending Babesia microti DNA PCR Pending Lyme Disease Antibody Pending COVID-19 Source SARS-CoV-2 (PCR) (Negative) E.chaffeensis DNA (PCR) Pending E.ewingii/canis DNA PCR Pending E.muris eauclairensis (PCR) Pending Hepatitis A IgM Ab Hep Bs Antigen Hep B Core Total Ab Hepatitis C Antibody Monoscreen (Negative) HIV 1&2 Ag/Ab, 4th Gen Influenza Type A (PCR) (Negative) Influenza Type B (PCR) (Negative) RSV (PCR) (Negative) A. phagocytophilum (PCR) Pending Blood B. miyamotoi (PCR) Pending 11/06/24 18:38 Blood Culture - Pending Blood 11/06/24 17:17 Blood Culture - Pending Blood Intake and Output - 24 Hour Total 11/06/24 15:16 thru 11/06/24 23:36 Intake Total 1200 Balance 1200 Weight 89.811 kg Intake: IV 1200 Falls Risk Assessment History of Falls No History 11/06/24 15:35 Contributing Factors No Factors 11/06/24 15:35 Ambulatory Aids Independent 11/06/24 15:35 Tubes/Lines W/no contributing factors 11/06/24 15:35 Gait Evaluation No gait disturbance 11/06/24 15:35 Cognition No cognitive impairment 11/06/24 15:35 Fall Total Score 10 11/06/24 15:35 Level of Risk Standard/Low Risk 11/06/24 15:35 Problems (Last Updated 12/18/23 @ 11:09 by Myriam Cadena RN) Diverticulitis (Chronic) Neutropenia (Acute) v v v v v v v v v Sending and/or Receiving Nurses: Please use comment section below to note any information pertinent to the patient hand-off not included above. Information / Comments: Report received from: Catherine Cohn RN
[2024-11-07 06:29] LABS: Abs Immature Grans 0.00 10^3/uL (0.0-0.06); HCT 32.6 % (40.0-50.0); HGB 11.1 g/dL (13.5-17.5); Immature Grans % 0.0 %; MCH 31.5 pg (27.0-33.0); MCHC 34.0 % (32.0-36.0); MCV 93 fL (80-95); MPV 12.3 fL (8.0-11.0); Platelet Count 137 10^3/uL (130-400); RBC 3.52 10^6/uL (4.36-5.78); RDW 12.2 % (11.8-14.1); RDW-SD 41.4 fL
[2024-11-07 06:39] LABS: INR 1.0 (0.9-1.1); Prothrombin Time 10.4 sec (9.1-11.1)
[2024-11-07 06:49] LABS: ALT 22 U/L (16-63); AST 22 U/L (15-37); Albumin 3.0 g/dL (3.4-5.0); Alkaline Phosphatase 61 U/L (46-116); Anion Gap 10.5 mmol/L (3-11); BUN 17 mg/dL (7-18); Bilirubin, Total 1.4 mg/dL (0.2-1.0); CO2 23.5 mmol/L (21.0-32.0); Calcium 8.5 mg/dL (8.5-10.1); Chloride 105 mmol/L (98-107); Estimated GFR 71.32 (mL/min/1.73m2); Glucose 91 mg/dL (74-106); Magnesium 1.7 mg/dL (1.8-2.4); Potassium 3.7 mmol/L (3.5-5.1); Sodium 139 mmol/L (136-145); Total Protein 6.3 g/dL (6.4-8.2)
[2024-11-07 06:53] LABS: WBC 1.97 10^3/uL (4.4-10.8)
--- NOTE | 2024-11-07 08:36 | PDOC.CMIN ---
Date of service: 11/07/24 Time of Service: 08:36 Care Management Initial Assmt Initial Assessment Reason for Hospitalization: febrile neutropenia Functional Status/Living Situation Patient Presentation: Willard was sitting up in bed visiting with his Sabra when CM met with him. He was alert and oriented and easily engaged with CM. Willard was admitted with febrile neutropenia that is not associated with chemotherapy. He came to the hospital with abdominal pain with constipation/loose stools. During his workup it was noted that his ANC was 0.0 anfd that his WBC was 2.16; he is now on protective isolation. Imaging revealed the presence of diverticulitis, felt to likely be the source of his pain and fever. Today Willard's t-max was 37.9 C and his vital signs are stable; he stated that he does feel somewhat better. Willard lives in a single family home in [place] with his Sabra. They have 2 children who both live in [place] Torri works as a PA for [employer] and their son lives in [place]. 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 He is independent at baseline and is very fit and active according to Sabra. He does not receive any community services. Town of Residence: [place], [place] Resides with: Spouse ( Sabra) Significant Other/Family: Local Natural Supports: and 2 daughters who live locally Employment Status: Employed (teacher in [employer] Instrumental Activities of Daily Living (ADLs): Independent Medications Medication Management: No Issues/Barriers identified Advance Directives Advance Directives: Do you have an Advance Directive: N 07/24/15, 12:06 AD On File at [facility]: N 12/13/13, 16:31 Date Asked 11/06/24 11/06/24, 15:20 AD Date Reviewed COLST On File at [facility] COLST Date Scanned Code Status Resuscitation Status Full Code Insurance Coverage/Financial Issues Insurance: [place] Care Team Visit Care Team Role Provider Type Jean Claude Cancino MD MD [facility] STAFF PHYSICIAN Hiwot Tena NP Primary Care Provider NURSE PRACTITIONER Clarice Reyes Emergency Provider NURSE PRACTITIONER Joaquin Camejo MD Admit Provider [facility] STAFF PHYSICIAN Attending Provider Discharge Potential Discharge Needs: PCP F/U Appt Anticipated Barriers to Discharge: None Identified Patient/Family Education Needs: Review discharge instructions, discuss Ask Me Three Transportation: Private vehicle Plan: Anticipate Willard will be discharged home with no new services when medically cleared. He will follow up with his PCP and plan of care. CM will follow and continue to support discharge planning needs. Social Determinants of Health Screening Will the Patient Participate in the Screening?: Declined to provide PFSH All Active Problems (Updated 11/07/24 @ 02:07 by Joaquin Camejo MD) HLD (hyperlipidemia) (Acute) Benign essential hypertension (Acute) Sigmoid diverticulitis (Acute) Febrile neutropenia (Acute) Diverticulitis (Chronic) Neutropenia (Acute) Elevated TSH (Acute) CKD stage 3a, GFR 45-59 ml/min (Acute) Left shoulder strain (Acute) Sprain of anterior talofibular ligament of right ankle (Acute 01/28/24) Encounter for screening colonoscopy (Acute) Carotid stenosis, bilateral (Acute ~10/2023) 11/16/23 Cardiology Elevated PSA (Acute) Anemia (Chronic) Eczema (Acute) History of colon polyps (Acute) Malignant melanoma (Acute) Back Essential hypertension (Acute 12/08/12) Hypercholesterolemia (Acute) Elevated fasting glucose (Acute) [place] cardiac risk 10-20% in next 10 years (Acute 07/03/15) 16.4% Skin cancer (Chronic 07/28/12) hx SCCa, Basal cell ca, melanoma in situ. [facility] 2x/yr for surveillance & tx actinic keratoses prn Family history of colon cancer (Acute 01/25/14) brother, Family history of prostate cancer (Acute) BPH NOS w ur obs/LUTS (Acute 04/14/17) Medical History (Updated 11/07/24 @ 02:07 by Joaquin Camejo MD) Tubular adenoma of colon (~11/2023) Inflamed seborrheic keratosis Lentigines Toxic effect of venom of other arthropod, assault, initial encounter (~09/2021) 10/16/[address] [place] SCC (squamous cell carcinoma) (06/14/21) right lateral knee Serrated adenoma of colon (~09/2020) Tubular adenoma (~09/2020) Colon polyp, hyperplastic (~09/2020) Basal cell carcinoma of skin, unspecified 03/08/20-chest at [place] of [place]-ED&C done-Dr Wright,derm Actinic keratosis (07/28/12) 09/30/16 Dr Wright [facility] right cheek hypertrophic AK with other AK areas on face. 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 mccurdy [facility] Surgical History (Updated 11/30/23 @ 10:35 by Elyssa Weiner) History of colonoscopy (~11/2023) Status post tonsillectomy Status post surgical removal of malignant neoplasm of skin 12/24/17 excision of melanoma RUE Status post appendectomy S/P skin biopsy (08/30/19) Dorsum of R hand [facility] derm Dr Wright blepharoplasty Colonoscopy - IV Sedation (09/2020) Arthroplasty of knee Family History Father Essential hypertension Heart disease Brother Prostate cancer Colon cancer Other Lung cancer Social History (Updated 10/25/24 @ 08:44 by Thu Washburn LPN) Smoking/Tobacco Use Status: Never Smoking risk assessment performed?: Yes Alcohol Intake: current Alcohol Intake frequency: 0-2 drinks per day Alcohol type: beer Drug use: Occasionally Substance use type: marijuana Details: Pt smokes marijuana occasionally 11/06/24 Adopted: No Caregiver/Support person: No Foster care: No Household members: spouse Housing: house Number of Children: 2 number of grandchildren: 0 Communication Needs: None 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) Sexually active: Yes Do you think of yourself as: straight/heterosexual Current gender identity: male What is your relationship status?: How often do you talk on the phone with friends or family?: twice per week How often do you get together with friends or relatives?: twice per week Panel score (0-1 are the most socially isolated patients): 2 What type of physical activity do you participate in: regular exercise Frequency: 5-6 times per week Seatbelt use: always Drive intox or ride w/intox hazmat truck 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
[2024-11-07] MEDS: Enoxaparin 40 MG/0.4 ML SYR SC (08:38)
[2024-11-07] MEDS: Magnesium Oxide 400 MG TAB PO ×2 (08:39→19:32)
[2024-11-07] MEDS: Acetaminophen 325 MG TAB 650 MG PO (08:39)
[2024-11-07] MEDS: Normal Saline Flush 10 ML SYR IVP ×2 (08:39→19:32)
[2024-11-07] MEDS: Acyclovir 400 MG TAB PO ×2 (08:39→19:32)
[2024-11-07] MEDS: Ketorolac 15 MG/ML VIAL IVP ×3 (10:50→22:00)
[2024-11-07] MEDS: Na Phosphate Enema-Adult 133 ML BTL PR ×2 (11:24→19:00)
--- NOTE | 2024-11-07 11:45 | NUR.NOTE ---
Access chart to determine if patient was discharged or admitted, [facility] called asking about patient. Nursing Note:
--- NOTE | 2024-11-07 11:48 | W.NUTRFU ---
Date of service: 11/07/24 Time of Service: 11:51 Nutrition Note NOTE: Willard being treated for febrile neutropenia (WBC 1.97 today with temp normal at 37 at 11:44) and sigmoid diverticulitis. PMH significant for HLD, CKD3 and benign HTN. BMI wnl with weight history showing 2.7kg(~6lb) weight loss over the last year - pt denies unintentional weight loss. Mag 1.7 today (PO Mag ordered) Total protein and albumin low at 6.2/2.8 respectively, high CRP 7/13 at 4.86 Pt on clear liquids. Both he and are vegetarians and kitchen alerted to support with appropriate options. No aggressive nutrition intervention planned at this time. Will monitor nutrition related labs, weight,and diet advancement. -provide education on lower fiber diet with inflammation of bowel present and increasing again slowly, Would recommend daily weights while po intake is significantly limited. Time Spent in Nutritional Counseling and Treatment: 10 min
--- NOTE | 2024-11-07 14:30 | W.PM.PROGNOT ---
Date of Service Date of service: 11/07/24 Time of Service: 14:30 Assessment and Plan Assessment and plan (1) Febrile neutropenia: Status: Acute Assessment and plan: ANC of zero with fever 100, etiology unclear Patient denies recent illness, no recent travel, no sick contacts No recent weight loss, night sweats, fatigue Per [facility] hematology, serologies have been ordered Fluconazole 20 mg x 1 given in ED Continue zosyn, acyclovir 400 mg BID Neutropenic precautions, neutropenic diet Morning CBC, follow up with [facility] Hold VTE chemoprophylaxis cw medical management, reaching out to hem/onc (2) Sigmoid diverticulitis: Status: Acute Assessment and plan: Possibly secondary to viral enteritis PRN antiemetics, PRN narcotics 11/07/24 pt is on zosyn, will continue for now (3) Benign essential hypertension: Status: Acute Assessment and plan: Continue home amlodipine / olmesartan (anticipate substitution) (4) HLD (hyperlipidemia): Status: Acute Assessment and plan: Hold statin (5) CKD stage 3a, GFR 45-59 ml/min: Status: Acute Assessment and plan: At baseline 11/07/24 renal fx is improving Subjective Subjective Interval history since last seen: Pt anxious to go home Exam Narrative Exam Narrative: General: This is a very pleasant, well-nourished man in no distress HEENT: Normocephalic, atraumatic CV: Tachycardic, regular rhythm, no murmur Resp: CTAB Abd: Diffuse tenderness RLQ/LLQ, no masses. +NBS Skin: Warm and dry, without rashes nor lesions Neuro: Awake and alert, no focal deficits Objective Last Vital Signs Temp 37.0 C 11/07/24 11:44 Pulse 88 11/07/24 11:44 Resp 16 11/07/24 11:44 BP 140/70 11/07/24 11:44 Pulse Ox 99 11/07/24 11:44 Laboratory Results - last 24 hr 11/06/24 11/06/24 11/06/24 16:21 18:05 18:49 WBC 2.16 L 2.21 L RBC 4.30 L 3.61 L Hgb 13.7 11.5 L D Hct 40.5 33.3 L MCV 94 92 MCH 31.9 31.9 MCHC 33.8 34.5 RDW 12.2 12.1 Plt Count 147 137 MPV 11.6 H 11.9 H Immature Gran % 0.0 0.0 Neutrophils % 3.0 0.0 Lymphocytes % 57.0 66.0 Atypical Lymphs % 2 3 Monocytes % 36.0 29.0 Eosinophils % 0.0 1.0 Basophils % 2.0 1.0 Nucleated RBC % 0.0 0.0 Absolute Neutrophils 0.06 L* 0.00 L* Absolute Lymphocytes 1.27 1.52 Absolute Monocytes 0.78 0.64 Absolute Eosinophils 0.00 0.02 Absolute Basophils 0.04 0.02 RBC Morphology Normal Normal ESR PT INR VBG Lactate 1.4 Sodium 139 Potassium 3.7 Chloride 101 Carbon Dioxide 26.5 Anion Gap 11.5 H BUN 16 Creatinine 1.3 Est GFR (CKD-EPI 2020) 58.37 Glucose 109 H Calcium 9.4 Magnesium 1.7 L Total Bilirubin 1.6 H AST 33 ALT 32 Alkaline Phosphatase 85 C-Reactive Protein Total Protein 8.4 H Albumin 4.3 Lipase 37 TSH 2.36 Urine Color Yellow Urine Clarity Clear Urine pH 6.0 Ur Specific [place] 1.015 Urine Protein Negative Urine Ketones 15 H Urine Blood Negative Urine Nitrite Negative Urine Bilirubin Negative Urine Urobilinogen 0.2 Ur Leukocyte Esterase Negative Urine Glucose Negative COVID-19 Source SARS-CoV-2 (PCR) Monoscreen Influenza Type A (PCR) Influenza Type B (PCR) RSV (PCR) 11/06/24 11/06/24 11/07/24 21:05 22:05 05:45 WBC 1.97 L* RBC 3.52 L Hgb 11.1 L Hct 32.6 L MCV 93 MCH 31.5 MCHC 34.0 RDW 12.2 Plt Count 137 MPV 12.3 H Immature Gran % 0.0 Neutrophils % 1.6 Lymphocytes % 54.8 Atypical Lymphs % Monocytes % 39.6 Eosinophils % 3.0 Basophils % 1.0 Nucleated RBC % 0.0 Absolute Neutrophils 0.03 L* Absolute Lymphocytes 1.08 L Absolute Monocytes 0.78 Absolute Eosinophils 0.06 Absolute Basophils 0.02 RBC Morphology ESR 22 H PT 10.4 INR 1.0 VBG Lactate Sodium 139 Potassium 3.7 Chloride 105 Carbon Dioxide 23.5 Anion Gap 10.5 BUN 17 Creatinine 1.1 Est GFR (CKD-EPI 2020) 71.32 Glucose 91 Calcium 8.5 Magnesium 1.7 L Total Bilirubin 1.4 H AST 22 ALT 22 Alkaline Phosphatase 61 C-Reactive Protein 4.86 H Total Protein 6.3 L Albumin 3.0 L Lipase TSH Urine Color Urine Clarity Urine pH Ur Specific [place] Urine Protein Urine Ketones Urine Blood Urine Nitrite Urine Bilirubin Urine Urobilinogen Ur Leukocyte Esterase Urine Glucose COVID-19 Source Nasopharynx SARS-CoV-2 (PCR) Negative Monoscreen Negative Influenza Type A (PCR) Negative Influenza Type B (PCR) Negative RSV (PCR) Negative PAWSS Have you Been Recently Intoxicated or Drunk Within the Last 30 days?: No Have you Ever Experienced Previous Episodes of Alcohol Withdrawal?: No Have you ever Experienced Withdrawal Seizures?: No Have you ever Experienced Delirium Tremens(DT)s?: No Have you ever undergone Alcohol Rehabilitation Treatment (i.e, inpt ot outpatient treatment programs)?: No Have you ever Experienced Blackouts?: No Have you ever Combined Alcohol with other Downers within the last 90 days?: Yes Have you ever Combined Alcohol with any other Substance of Abuse during the last 90 days?: Yes Positive Blood Alcohol level on Presentation? [PCS.BAL]: No Evidence of Increased Autonomic Activity (i.e. HR>120, tremor, sweating, agitation, nausea)?: No Result: 2 Time Spent with Patient Time Spent with Patient: <25 minutes Time was spent: preparing to see the patient(eg.review tests), obtaining and/or reviewing separately otained hiistory, ordering medications,tests, procedures, referring, communicating with other health animal daycare provider, indepentently interpreting results, counseling the patient and care coordination
[2024-11-07 18:51] LABS: HIV-1/2 Ag & Ab Screen Negative (Negative); Hepatitis A Antibody IgM Negative (Negative); Hepatitis C Ab w Rflx HCV PCR Negative (Negative)
[2024-11-08] VITALS (18 sets, daily range): BP systolic 125–144; BP diastolic 55–80; PULSE 75–102; RESP 16–26; TEMP 36.7–37.4; O2SAT 93–99
[2024-11-08] MEDS: Melatonin 3 MG TAB 9 MG PO ×2 (02:46→23:28)
[2024-11-08] MEDS: Ketorolac 15 MG/ML VIAL IVP ×4 (03:40→20:09)
[2024-11-08 06:44] LABS: Abs Immature Grans 0.00 10^3/uL (0.0-0.06); HCT 31.5 % (40.0-50.0); HGB 10.6 g/dL (13.5-17.5); Immature Grans % 0.0 %; MCH 31.0 pg (27.0-33.0); MCHC 33.7 % (32.0-36.0); MCV 92 fL (80-95); MPV 12.6 fL (8.0-11.0); Platelet Count 139 10^3/uL (130-400); RBC 3.42 10^6/uL (4.36-5.78); RDW 12.0 % (11.8-14.1); RDW-SD 41.2 fL
[2024-11-08 06:51] LABS: INR 1.0 (0.9-1.1); Prothrombin Time 10.2 sec (9.1-11.1)
[2024-11-08 06:55] LABS: Magnesium 1.7 mg/dL (1.8-2.4)
[2024-11-08 07:01] LABS: ALT 20 U/L (16-63); AST 20 U/L (15-37); Albumin 2.8 g/dL (3.4-5.0); Alkaline Phosphatase 56 U/L (46-116); Anion Gap 12.9 mmol/L (3-11); BUN 16 mg/dL (7-18); Bilirubin, Total 1.3 mg/dL (0.2-1.0); CO2 22.1 mmol/L (21.0-32.0); Calcium 8.3 mg/dL (8.5-10.1); Chloride 104 mmol/L (98-107); Estimated GFR 58.37 (mL/min/1.73m2); Glucose 94 mg/dL (74-106); Potassium 3.5 mmol/L (3.5-5.1); Sodium 139 mmol/L (136-145); Total Protein 6.2 g/dL (6.4-8.2)
[2024-11-08 07:20] LABS: WBC 1.99 10^3/uL (4.4-10.8)
--- NOTE | 2024-11-08 08:36 | CMPROGNOTE_ITS ---
Date of service: 11/08/24 Time of Service: 08:36 Care Management Progress Note Progress Note Text Progress Note Text: Willard was sitting up in a chair visiting with his Sabra when CM met with him. Yesterday both Willard and Sabra indicated that they did not have Advanced Directives and would like to complete them during this hospital stay. CM provided them both with AD forms and offered to assist with their completion. This morning Willard asked if the Advanced Directives could wait until tomorrow. He has been constipated since admission and is receiving laxatives to help address the issue and felt it would be too distracting. CM agreed to meet with the couple tomorrow. Clinically, Willard is about the same. His WBC is slightly lower (2.2 vs 1.97) and his ANC slightly higher ( 0.03 vs 0.10) but neither change is likely significant. Results from the tick panel are not back yet. Willard remains afebrile and his vital signs are stable.. Per provider, he will likewly remain hospitalized for another day or two. Discharge Potential Discharge Needs: PCP F/U Appt Anticipated Barriers to Discharge: None Identified Patient/Family Education Needs: Review discharge instructions, discuss Ask Me Three Transportation: Private vehicle Plan: Anticipate Willard will be discharged home with no new services when medically cleared. He will follow up with his PCP and plan of care. CM will follow and continue to support discharge planning needs. * Social Determinants of Health Screening Will the Patient Participate in the Screening?: Declined to provide
[2024-11-08] MEDS: Enoxaparin 40 MG/0.4 ML SYR SC (08:45)
[2024-11-08] MEDS: Acyclovir 400 MG TAB PO ×2 (08:46→20:07)
[2024-11-08] MEDS: Magnesium Oxide 400 MG TAB PO ×2 (08:46→20:08)
[2024-11-08] MEDS: Polyethylene Glycol 3350 17 GM PACKET PO (08:46)
[2024-11-08] MEDS: Normal Saline Flush 10 ML SYR IVP ×2 (08:47→20:10)
[2024-11-08 10:22] LABS: Lyme Ab w Rflx to Lyme Confirm Negative (Negative)
[2024-11-08] MEDS: Polyethylene Glycol 3350 238 GM BTL PO (14:33)
--- NOTE | 2024-11-08 14:39 | W.PM.PROGNOT ---
Date of Service Date of service: 11/08/24 Time of Service: 14:39 Assessment and Plan Assessment and plan (1) Febrile neutropenia: Status: Acute Assessment and plan: ANC of zero with fever 100, etiology unclear Patient denies recent illness, no recent travel, no sick contacts No recent weight loss, night sweats, fatigue Per [facility] hematology, serologies have been ordered Fluconazole 20 mg x 1 given in ED Continue zosyn, acyclovir 400 mg BID Neutropenic precautions, neutropenic diet Morning CBC, follow up with [facility] Hold VTE chemoprophylaxis cw medical management, reaching out to hem/onc 11/08/24 WBC at 1.99 with ANC at .10. CW antivirals as well as abx. Repeat CBC in am and will reach out to Hem/Onc with results (2) Sigmoid diverticulitis: Status: Acute Assessment and plan: Possibly secondary to viral enteritis PRN antiemetics, PRN narcotics 11/07/24 pt is on zosyn, will continue for now (3) Benign essential hypertension: Status: Acute Assessment and plan: Continue home amlodipine / olmesartan (anticipate substitution) Good control currently (4) HLD (hyperlipidemia): Status: Acute Assessment and plan: Hold statin (5) CKD stage 3a, GFR 45-59 ml/min: Status: Acute Assessment and plan: At baseline 11/07/24 renal fx is improving 11/08/24 stable renal fx Subjective Subjective Interval history since last seen: No new complaints. Anxious to dc home. Vacation planned for end of week Exam Narrative Exam Narrative: General: This is a very pleasant, well-nourished man in no distress HEENT: Normocephalic, atraumatic CV: Tachycardic, regular rhythm, no murmur Resp: CTAB Abd: Diffuse tenderness RLQ/LLQ, no masses. +NBS Skin: Warm and dry, without rashes nor lesions Neuro: Awake and alert, no focal deficits Objective Last Vital Signs Temp 37.0 C 11/08/24 11:48 Pulse 78 11/08/24 11:48 Resp 16 11/08/24 11:48 BP 131/64 11/08/24 11:48 Pulse Ox 99 11/08/24 11:48 Laboratory Results - last 24 hr 11/06/24 11/07/24 11/08/24 21:05 05:45 05:10 WBC 1.99 L* RBC 3.42 L Hgb 10.6 L Hct 31.5 L MCV 92 MCH 31.0 MCHC 33.7 RDW 12.0 Plt Count 139 MPV 12.6 H Immature Gran % 0.0 Neutrophils % 5.1 Lymphocytes % 47.2 Monocytes % 41.7 Eosinophils % 4.5 Basophils % 1.5 Nucleated RBC % 0.0 Absolute Neutrophils 0.10 L* Absolute Lymphocytes 0.94 L Absolute Monocytes 0.83 H Absolute Eosinophils 0.09 Absolute Basophils 0.03 PT 10.2 INR 1.0 Sodium 139 Potassium 3.5 Chloride 104 Carbon Dioxide 22.1 Anion Gap 12.9 H BUN 16 Creatinine 1.3 Est GFR (CKD-EPI 2020) 58.37 Glucose 94 Calcium 8.3 L Magnesium 1.7 L Total Bilirubin 1.3 H AST 20 ALT 20 Alkaline Phosphatase 56 Total Protein 6.2 L Albumin 2.8 L Hepatitis A IgM Ab Negative Hep Bs Antigen Negative Hep B Core Total Ab Negative Hepatitis C Antibody Negative HIV 1&2 Ag/Ab, 4th Gen Negative Path Cons Comment SEE COMMENT PAWSS Have you Been Recently Intoxicated or Drunk Within the Last 30 days?: No Have you Ever Experienced Previous Episodes of Alcohol Withdrawal?: No Have you ever Experienced Withdrawal Seizures?: No Have you ever Experienced Delirium Tremens(DT)s?: No Have you ever undergone Alcohol Rehabilitation Treatment (i.e, inpt ot outpatient treatment programs)?: No Have you ever Experienced Blackouts?: No Have you ever Combined Alcohol with other Downers within the last 90 days?: Yes Have you ever Combined Alcohol with any other Substance of Abuse during the last 90 days?: Yes Positive Blood Alcohol level on Presentation? [PCS.BAL]: No Evidence of Increased Autonomic Activity (i.e. HR>120, tremor, sweating, agitation, nausea)?: No Result: 2 Time Spent with Patient Time Spent with Patient: 25-34 minutes Time was spent: preparing to see the patient(eg.review tests), obtaining and/or reviewing separately otained hiistory, ordering medications,tests, procedures, referring, communicating with other health healthcare network consultant, indepentently interpreting results, counseling the patient and care coordination
[2024-11-08] MEDS: Metoprolol 12.5 MG TAB PO (20:08)
[2024-11-09] VITALS (11 sets, daily range): BP systolic 144–160; BP diastolic 72–80; PULSE 63–88; RESP 11–23; TEMP 36.6–37; O2SAT 96–98
[2024-11-09] MEDS: Ketorolac 15 MG/ML VIAL IVP (04:21)
[2024-11-09 07:14] LABS: Abs Immature Grans 0.09 10^3/uL (0.0-0.06); HCT 32.6 % (40.0-50.0); HGB 10.7 g/dL (13.5-17.5); Immature Grans % 3.3 %; MCH 30.4 pg (27.0-33.0); MCHC 32.8 % (32.0-36.0); MCV 93 fL (80-95); MPV 12.4 fL (8.0-11.0); Platelet Count 142 10^3/uL (130-400); RBC 3.52 10^6/uL (4.36-5.78); RDW 12.1 % (11.8-14.1); RDW-SD 40.8 fL; WBC 2.73 10^3/uL (4.4-10.8)
[2024-11-09 07:30] LABS: INR 1.0 (0.9-1.1); Prothrombin Time 10.4 sec (9.1-11.1)
[2024-11-09 07:42] LABS: RBC Morphology Normal
[2024-11-09 08:02] LABS: ALT 19 U/L (16-63); AST 22 U/L (15-37); Albumin 2.7 g/dL (3.4-5.0); Alkaline Phosphatase 52 U/L (46-116); Anion Gap 12.9 mmol/L (3-11); BUN 16 mg/dL (7-18); Bilirubin, Total 1.0 mg/dL (0.2-1.0); CO2 22.1 mmol/L (21.0-32.0); Calcium 8.4 mg/dL (8.5-10.1); Chloride 106 mmol/L (98-107); Estimated GFR 71.32 (mL/min/1.73m2); Glucose 79 mg/dL (74-106); Magnesium 1.9 mg/dL (1.8-2.4); Potassium 3.5 mmol/L (3.5-5.1); Sodium 141 mmol/L (136-145); Total Protein 6.1 g/dL (6.4-8.2)
[2024-11-09] MEDS: Metoprolol 12.5 MG TAB PO ×2 (08:12→20:04)
[2024-11-09] MEDS: Enoxaparin 40 MG/0.4 ML SYR SC (08:12)
[2024-11-09] MEDS: Magnesium Oxide 400 MG TAB PO ×2 (08:12→20:03)
[2024-11-09] MEDS: Normal Saline Flush 10 ML SYR IVP ×2 (08:12→20:03)
[2024-11-09] MEDS: Acyclovir 400 MG TAB PO ×2 (08:12→20:04)
--- NOTE | 2024-11-09 10:55 | CMPROGNOTE_ITS ---
Date of service: 11/09/24 Time of Service: 10:55 Care Management Progress Note Progress Note Text Progress Note Text: Willard was sitting on the side of the bed looking out the window when CM met with him. He was pleasant in interaction and agreeable to conversation. Willard's ANC continues to slowly improve. Today it was 0.39 compared to 0.1 yesterday. Willard has been told that when it reaches 0.5 he can be discharged. He really hopes that happens tomorrow as he has a family trip planned for this weekend. Willard understands that he will need to wear a mask around others and practice really good handwashing to prevent exposure to any diseases. CM had blayne nned to help Willard and Sabra complete Advanced Directives today however Sabra was not available. CM provided contact information and Willard will call after discharge and schedule a time when CM can meet with them to do the paperwork. Discharge Potential Discharge Needs: PCP F/U Appt Anticipated Barriers to Discharge: Medical Status Patient/Family Education Needs: Review discharge instructions, discuss Ask Me Three Transportation: Private vehicle Plan: Anticipate Willard will be discharged home with no new services when medically cleared. He will follow up with his PCP and plan of care. CM will follow and continue to support discharge planning needs. Social Determinants of Health Screening Will the Patient Participate in the Screening?: Declined to provide
--- NOTE | 2024-11-09 14:29 | PGE_ITS ---
Date of Service Date of service: 11/09/24 Time of Service: 14:30 Assessment and Plan Assessment and plan (1) Febrile neutropenia: Status: Acute Assessment and plan: ANC of zero with fever 100, etiology unclear Patient denies recent illness, no recent travel, no sick contacts No recent weight loss, night sweats, fatigue Per [facility] hematology, serologies have been ordered Fluconazole 20 mg x 1 given in ED Continue zosyn, acyclovir 400 mg BID Neutropenic precautions, neutropenic diet Morning CBC, follow up with [facility] Hold VTE chemoprophylaxis cw medical management, reaching out to hem/onc 11/08/24 WBC at 1.99 with ANC at .10. CW antivirals as well as abx. Repeat CBC in am and will reach out to Hem/Onc with results 11/09/24 WBC and ANC improving. Per my discussion with hem-onc, dc would be appropriate once anc is 500 (currently at 397). CW zosyn and acyclovir (2) Sigmoid diverticulitis: Status: Acute Assessment and plan: Possibly secondary to viral enteritis PRN antiemetics, PRN narcotics 11/07/24 pt is on zosyn, will continue for now (3) Benign essential hypertension: Status: Acute Assessment and plan: Continue home amlodipine / olmesartan (anticipate substitution) Good control currently (4) HLD (hyperlipidemia): Status: Acute Assessment and plan: Hold statin (5) CKD stage 3a, GFR 45-59 ml/min: Status: Acute Assessment and plan: At baseline 11/07/24 renal fx is improving 11/08/24 stable renal fx Subjective Subjective Interval history since last seen: PT seen and examined in his room this am. POC d/w pt/family/bedside nurse/hem- onc at [facility]. Pt did have multiple BM with golytely Exam Narrative Exam Narrative: General: This is a very pleasant, well-nourished man in no distress HEENT: Normocephalic, atraumatic CV: Tachycardic, regular rhythm, no murmur Resp: CTAB Abd: Diffuse tenderness RLQ/LLQ, no masses. +NBS Skin: Warm and dry, without rashes nor lesions Neuro: Awake and alert, no focal deficits Objective Last Vital Signs Temp 37 C 11/08/24 23:47 Pulse 82 11/09/24 09:22 Resp 11 L 11/09/24 08:00 BP 157/72 H 11/09/24 09:22 Pulse Ox 98 11/09/24 09:22 Laboratory Results - last 24 hr 11/06/24 11/09/24 16:21 05:30 WBC 2.73 L RBC 3.52 L Hgb 10.7 L Hct 32.6 L MCV 93 MCH 30.4 MCHC 32.8 RDW 12.1 Plt Count 142 MPV 12.4 H Immature Gran % 3.3 Neutrophils % 14.2 Lymphocytes % 48.7 Monocytes % 28.6 Eosinophils % 3.7 Basophils % 1.5 Nucleated RBC % 0.0 Absolute Neutrophils 0.39 L* Absolute Lymphocytes 1.33 Absolute Monocytes 0.78 Absolute Eosinophils 0.10 Absolute Basophils 0.04 RBC Morphology Normal PT 10.4 INR 1.0 Sodium 141 Potassium 3.5 Chloride 106 Carbon Dioxide 22.1 Anion Gap 12.9 H BUN 16 Creatinine 1.1 Est GFR (CKD-EPI 2020) 71.32 Glucose 79 Calcium 8.4 L Magnesium 1.9 Total Bilirubin 1.0 AST 22 ALT 19 Alkaline Phosphatase 52 Total Protein 6.1 L Albumin 2.7 L Lyme Disease Antibody Negative PAWSS Have you Been Recently Intoxicated or Drunk Within the Last 30 days?: No Have you Ever Experienced Previous Episodes of Alcohol Withdrawal?: No Have you ever Experienced Withdrawal Seizures?: No Have you ever Experienced Delirium Tremens(DT)s?: No Have you ever undergone Alcohol Rehabilitation Treatment (i.e, inpt ot outpatient treatment programs)?: No Have you ever Experienced Blackouts?: No Have you ever Combined Alcohol with other Downers within the last 90 days?: Yes Have you ever Combined Alcohol with any other Substance of Abuse during the last 90 days?: Yes Positive Blood Alcohol level on Presentation? [PCS.BAL]: No Evidence of Increased Autonomic Activity (i.e. HR>120, tremor, sweating, agitation, nausea)?: No Result: 2 Time Spent with Patient Time Spent with Patient: 25-34 minutes Time was spent: preparing to see the patient(eg.review tests), obtaining and/or reviewing separately otained hiistory, ordering medications,tests, procedures, referring, communicating with other health child care counselor, indepentently interpreting results, counseling the patient and care coordination
--- NOTE | 2024-11-09 15:53 | CHAPLAIN ---
Willard was working on this laptop when I visited. He was pleasant and engaged in conversation. I explained my role and offered support. Willard's Sabra, and son had be into visit earlier in the day and Sabra was here yesterday.
[2024-11-09] MEDS: Melatonin 3 MG TAB 9 MG PO (22:10)
[2024-11-10 04:00] VITALS: PULSE 68; RESP 14
[2024-11-10] MEDS: Normal Saline Flush 10 ML SYR IVP ×2 (06:04→08:29)
[2024-11-10 06:09] VITALS: BP 131/68; PULSE 69; PULSE 70; RESP 19; O2SAT 96
[2024-11-10 07:01] LABS: Abs Immature Grans 0.26 10^3/uL (0.0-0.06); HCT 32.6 % (40.0-50.0); HGB 11.1 g/dL (13.5-17.5); Immature Grans % 6.1 %; MCH 31.6 pg (27.0-33.0); MCHC 34.0 % (32.0-36.0); MCV 93 fL (80-95); MPV 12.3 fL (8.0-11.0); Platelet Count 171 10^3/uL (130-400); RBC 3.51 10^6/uL (4.36-5.78); RDW 12.0 % (11.8-14.1); RDW-SD 41.2 fL; WBC 4.27 10^3/uL (4.4-10.8)
[2024-11-10 07:07] LABS: RBC Morphology Normal
[2024-11-10 07:43] LABS: ALT 22 U/L (16-63); AST 23 U/L (15-37); Albumin 2.6 g/dL (3.4-5.0); Alkaline Phosphatase 49 U/L (46-116); Anion Gap 9.9 mmol/L (3-11); BUN 13 mg/dL (7-18); Bilirubin, Total 0.5 mg/dL (0.2-1.0); CO2 24.1 mmol/L (21.0-32.0); Calcium 8.9 mg/dL (8.5-10.1); Chloride 108 mmol/L (98-107); Estimated GFR 79.97 (mL/min/1.73m2); Glucose 95 mg/dL (74-106); Potassium 3.9 mmol/L (3.5-5.1); Sodium 142 mmol/L (136-145); Total Protein 6.1 g/dL (6.4-8.2)
[2024-11-10] MEDS: Acyclovir 400 MG TAB PO (08:28)
[2024-11-10] MEDS: Enoxaparin 40 MG/0.4 ML SYR SC (08:28)
[2024-11-10] MEDS: Metoprolol 12.5 MG TAB PO (08:28)
[2024-11-10] MEDS: Magnesium Oxide 400 MG TAB PO (08:28)
--- NOTE | 2024-11-10 08:47 | PDOC.CMDIS ---
Date of service: 11/10/24 Time of Service: 08:47 LACE Index Scoring Tool Questions: Length of Stay (in days): 4 - 6 Was the patient admitted via the E.D.?: Yes Comorbidities: Any Tumor and Liver or Renal Disease E.D. Visits: 1 Answers: Total Score: 13 Risk of Readmission: High Risk Care Management Discharge Plan Reason for Hospitalization: febrile neutropenia Discharge Plan: Willard will be discharged home with no new services. He will follow up with his PCP and plan of care and transport via private vehicle with Sabra. Patient/Family Education Needs: review of discharge instructions, limitations, follow up plan and discus Ask Me Three
[2024-11-10 08:53] VITALS: BP 157/83; PULSE 79; PULSE 82; RESP 13; O2SAT 99
[2024-11-10 08:54] VITALS: PULSE 82; RESP 15
--- NOTE | 2024-11-10 11:06 | W.PM.DS.N ---
Date of service: 11/10/24 Time of Service: 11:06 DS: Diagnosis Discharge Diagnosis (1) Febrile neutropenia: Status: Acute (2) Sigmoid diverticulitis: Status: Acute (3) Benign essential hypertension: Status: Acute (4) HLD (hyperlipidemia): Status: Acute (5) CKD stage 3a, GFR 45-59 ml/min: Status: Acute Discharge Plan Disposition Patient Disposition: Home Condition: Improving Discharge Details Reason For Visit: Febrile Neutropenia Admit Date/Time: 11/06/24 21:53 Admit Provider: Joaquin Camjeo Attending Provider: Joaquin Camejo Primary Care Provider: Hiwot Tena Hospital Course Hospital Course: This is a 74-year-old gentleman who was admitted on the with febrile neutropenia as well as sigmoid diverticulitis. While he was here our team had multiple calls with hematology oncology at [facility] specifically speaking with Dr. MELENDEZ. Patient's blood cultures were negative at 48 hours and chest x-ray did not indicate any sort of pulmonary infection. I have attached the CT below which indicates diverticulitis as well as HPI and his pathology from blood smear. Upon my discussion with the laser beam machine operator they recommended that he can be discharged if his ANC was over 500. At the time of discharge his ANC was 860 with normal being 1200. His white count had also improved to 4.2. Considering the fact the patient is very anxious to be discharged home and he had improving indices we did agree to home discharge. I we will continue antibiotics and antivirals for another 5 days. We strongly recommend that he follow-up with hematology oncology in the outpatient setting as soon as possible as well as his PCP in 1 to 2 weeks. Recommend CBC and CMP on his return from vacation. These results go to his PCP. Of note his HIV as well as his Lyme's panel was negative. I will send the patient home with Cipro as well as acyclovir. Did discuss with the family contact precautions and they voiced understanding. History of Present Illness History of Present Illness Chief Complaint: abdominal pain Narrative: Willard Montague is a 74 year old man presenting November 06 with a few days of worsening crampy lower abdominal pain with tenesmus and constipation. On day of presentation, he became febrile to 103, and had no appetite. He has been unable to sleep due to frequent need to defecate, producing only small liquid/loose stools. He has continued with normal activities until today. He has out of state travel planned for the end of the week and wanted to plow through any symptoms. No shortness of breath, no chest pain, no nausea/vomiting. No B symtoms. PMH includes HTN, HLD, BPH, carotid stenosis, CKD/III, appendectomy, diverticulosis. In the ED he was febrile 37.9, tachycaqrdic 105, hypertensive 160/73. CBC with very low absolute neutrophils 0.06 and leukopenia 2.16. Low magnesium 1.7. 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 CXR unremarkable. CBC was repeated, confirming neutropenia with ANC of zero. [facility] hematology was called and recommended viral serologies, inflammatory markers, and initiation of antimicrobials. Assessment and plan (1) Febrile neutropenia: Status: Acute Assessment and plan: ANC of zero with fever 100, etiology unclear Patient denies recent illness, no recent travel, no sick contacts No recent weight loss, night sweats, fatigue Per [facility] hematology, serologies have been ordered Fluconazole 20 mg x 1 given in ED Continue zosyn, acyclovir 400 mg BID Neutropenic precautions, neutropenic diet Morning CBC, follow up with [facility] Hold VTE chemoprophylaxis (2) Sigmoid diverticulitis: Status: Acute Assessment and plan: Possibly secondary to viral enteritis PRN antiemetics, PRN narcotics (3) Benign essential hypertension: Status: Acute Assessment and plan: Continue home amlodipine / olmesartan (anticipate substitution) (4) HLD (hyperlipidemia): Status: Acute Assessment and plan: Hold statin (5) CKD stage 3a, GFR 45-59 ml/min: Status: Acute Assessment and plan: At baseline Reviewed by Pathologist:11/08/24Reflex peripheral smear review for absolute neutropenia in this 74 y.o. man with fever and diarrhea.RBC: normochromic normocytic anemia with unremarkable red blood cell morphology.WBC: leukopenia with neutropenia and a predominance of small mature lymphocytes; no blasts or overt features of dysplasia seen.PLT: adequate platelets with a few large platelets present.Impression: Leukopenia with associated neutropenia and normochromic normocytic anemia of uncertain etiology. Correlation with possible underlying contributing factors including secondary causes (i.e. infection, nutritional deficiency, autoimmune disorders, etc.), primary causes (bone marrow disorder) and pertinent laboratory data (i.e. serologies for underlying infections, inflammatory markers such as ESR and C-reactive protein, B12 and folate levels, etc.) is recommended.Dr. Shelley Waller, [facility], 11/07/24 CT ABD/Pelvis IMPRESSION: 1. Findings consistent with acute diverticulitis. No abscess or free air. 2. Stable incidental findings in the abdomen and pelvis as described above. 3. The preliminary [facility] report was reviewed. Home Meds and New Rx's Prescriptions: New acyclovir 400 mg Tablet 400 mg PO BID 5 Days Qty: 10 0RF ciprofloxacin HCl 500 mg tablet 500 mg PO BID 5 Days Qty: 10 0RF Continued amlodipine-olmesartan 10-20 mg tablet 1 tab PO DAILY Qty: 90 3RF atorvastatin 20 mg tablet 20 mg PO DAILY Qty: 90 3RF aspirin 81 mg capsule 81 mg PO DAILY Patient Comments: Has not taken recently per pt 11/06/24 Discharge Instructions Referrals: HEMATOLOGY/ONC,[facility] [OTHER, Oncology] Referral Note: as soon as possible Hiwot Tena NP [Primary Care Provider, Medicine] Referral Note: follow up with PCP in 1-2 weeks. Follow up with CBC/CMP in one week Activity:: Activity as Tolerated Equipment/Supplies:: No Equipment Needed Diet:: As Tolerated Discharge Orders Discharge Orders: Discharge Order (Routine); Ordered 11/10/24 Ordered By: Jean Claude Cancino DS: Summary Time Spent with Patient providing and/or coordinating discharge services: Greater than 30 minutes Status at Discharge Functional status at discharge: independent ambulation Overall status at discharge: patient is back to baseline Mental Status: mental status grossly normal Speech and Movement: speech and movement normal Mood: congruent mood Affect: normal affect Exam Narrative Exam Narrative: General: This is a very pleasant, well-nourished man in no distress HEENT: Normocephalic, atraumatic CV: Tachycardic, regular rhythm, no murmur Resp: CTAB abd: no distention Skin: Warm and dry, without rashes nor lesions Neuro: Awake and alert, no focal deficits Psych Mental Status: mental status grossly normal Speech and Movement: speech and movement normal Mood: congruent mood Affect: normal affect DS: Data Vitals/I&O Vitals and I&O: Vital Signs Temperature 37 C 11/09/24 23:13 Temperature Source Temporal Artery Scan 11/10/24 06:10 Pulse 79 11/10/24 08:53 Pulse 82 11/10/24 08:53 Respiratory Rate 13 11/10/24 08:53 Respiratory Effort Normal 11/06/24 22:40 Respiratory Depth Normal 11/06/24 22:40 Respiratory Pattern Normal 11/06/24 22:40 Blood Pressure 157/83 H 11/10/24 08:53 Blood Pressure Mean 107 11/10/24 08:53 Blood Pressure Position Sitting 11/06/24 15:35 Pulse Oximetry 99 11/10/24 08:53 Oxygen Delivery Method Room Air 11/10/24 06:10 Oxygen Flow Rate 0 11/10/24 06:10 Pain Level 37 11/10/24 06:10 Intake & Output 11/09/24 11/09/24 11/10/24 11:59 23:59 11:59 Intake Total 560 / 1100.000 540.000 / 1100.000 100 / 100 Output Total 250 / 250 Balance 310 / 850.000 540.000 / 850.000 100 / 100 Weight 88.2 kg 89.9 kg Intake: IV 200 / 300.000 100.000 / 300.000 100 / 100 Oral 360 / 800 440 / 800 Output: Urine 250 / 250 Other: Urine Color Pale Yellow Urine Appearance Clear Urine Odor None Comment patient urinates independently reports no issues with urination patient is independent in room and voiding straight into toilet, so occurrence is not measurable. patient independent with toileting, reports no issues Stool Size Small Stool Characteristics Formed Data Completed and Pending Labs on day of discharge: Labs from last 24 hours 11/10/24 05:52 WBC 4.27 L RBC 3.51 L Hgb 11.1 L Hct 32.6 L MCV 93 MCH 31.6 MCHC 34.0 RDW 12.0 Plt Count 171 MPV 12.3 H Immature Gran % 6.1 Neutrophils % 20.2 Lymphocytes % 41.9 Monocytes % 26.5 Eosinophils % 3.7 Basophils % 1.6 Nucleated RBC % 0.0 Absolute Neutrophils 0.86 L Absolute Lymphocytes 1.79 Absolute Monocytes 1.13 H Absolute Eosinophils 0.16 Absolute Basophils 0.07 RBC Morphology Normal Sodium 142 Potassium 3.9 Chloride 108 H Carbon Dioxide 24.1 Anion Gap 9.9 BUN 13 Creatinine 1.0 Est GFR (CKD-EPI 2020) 79.97 Glucose 95 Calcium 8.9 Total Bilirubin 0.5 AST 23 ALT 22 Alkaline Phosphatase 49 Total Protein 6.1 L Albumin 2.6 L Preliminary micro results at discharge 11/06/24 18:38 Blood Blood Culture - Preliminary NO GROWTH 72 HOURS 11/06/24 17:17 Blood Blood Culture - Preliminary NO GROWTH 72 HOURS PFSH All Active Problems (Updated 11/07/24 @ 02:07 by Joaquin Camejo MD) HLD (hyperlipidemia) (Acute) Benign essential hypertension (Acute) Sigmoid diverticulitis (Acute) Febrile neutropenia (Acute) Diverticulitis (Chronic) Neutropenia (Acute) Elevated TSH (Acute) CKD stage 3a, GFR 45-59 ml/min (Acute) Left shoulder strain (Acute) Sprain of anterior talofibular ligament of right ankle (Acute 01/28/24) Encounter for screening colonoscopy (Acute) Carotid stenosis, bilateral (Acute ~10/2023) 11/16/23 Cardiology Elevated PSA (Acute) Anemia (Chronic) Eczema (Acute) History of colon polyps (Acute) Malignant melanoma (Acute) Back Essential hypertension (Acute 12/08/12) Hypercholesterolemia (Acute) Elevated fasting glucose (Acute) [place] cardiac risk 10-20% in next 10 years (Acute 07/03/15) 16.4% Skin cancer (Chronic 07/28/12) hx SCCa, Basal cell ca, melanoma in situ. [facility] 2x/yr for surveillance & tx actinic keratoses prn Family history of colon cancer (Acute 01/25/14) brother, Family history of prostate cancer (Acute) BPH NOS w ur obs/LUTS (Acute 04/14/17) Medical History (Updated 11/07/24 @ 02:07 by Joaquin Camejo MD) Tubular adenoma of colon (~11/2023) Inflamed seborrheic keratosis Lentigines Toxic effect of venom of other arthropod, assault, initial encounter (~09/2021) 10/16/21 Dr Arpit Sun SCC (squamous cell carcinoma) (06/14/21) right lateral knee Serrated adenoma of colon (~09/2020) Tubular adenoma (~09/2020) Colon polyp, hyperplastic (~09/2020) Basal cell carcinoma of skin, unspecified 03/08/20-chest at [facility] of neck-ED&C done-Dr Wrightderm Actinic keratosis (07/28/12) 09/30/16 Dr Wright [facility] right cheek hypertrophic AK with other AK areas on face. 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 mccurdy [facility] Surgical History (Updated 11/30/23 @ 10:35 by Elyssa Weiner) History of colonoscopy (~11/2023) Status post tonsillectomy Status post surgical removal of malignant neoplasm of skin 12/24/17 excision of melanoma RUE Status post appendectomy S/P skin biopsy (08/30/19) Dorsum of R hand [facility] derm Dr Wright blepharoplasty Colonoscopy - IV Sedation (09/2020) Arthroplasty of knee Family History Father Essential hypertension Heart disease Brother Prostate cancer Colon cancer Other Lung cancer Social History (Updated 10/25/24 @ 08:44 by Thu Washburn LPN) Smoking/Tobacco Use Status: Never Smoking risk assessment performed?: Yes Alcohol Intake: current Alcohol Intake frequency: 0-2 drinks per day Alcohol type: beer Drug use: Occasionally Substance use type: marijuana Details: Pt smokes marijuana occasionally 11/06/24 Adopted: No Caregiver/Support person: No Foster care: No Household members: spouse Housing: house Number of Children: 2 number of grandchildren: 0 Communication Needs: None 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) Sexually active: Yes Do you think of yourself as: straight/heterosexual Current gender identity: male What is your relationship status?: How often do you talk on the phone with friends or family?: twice per week How often do you get together with friends or relatives?: twice per week Panel score (0-1 are the most socially isolated patients): 2 What type of physical activity do you participate in: regular exercise Frequency: 5-6 times per week Seatbelt use: always Drive intox or ride w/intox transfer 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 Time Spent with Patient Time Spent with Patient: 45-69 minutes Time was spent: preparing to see the patient(eg.review tests), obtaining and/or reviewing separately otained hiistory, ordering medications,tests, procedures, referring, communicating with other health managed care coordinator, indepentently interpreting results, counseling the patient and care coordination
[2024-11-10 14:10] LABS: B. miyamotoi PCR Negative (Negative); Babesia divergens/MO-1 Negative (Negative); Ehrlichia muris eauclairensis Negative (Negative)
== END 2024-11-10 12:20 | disposition home or self-care (01) | DRG 378 ==
LOC: ER 22:42 → ICU 22:55
PROVIDERS: Admitting Provider Family Medicine; Emergency Provider Nurse Practitioner Family; PCP Nurse Practitioner; Responsible Provider Hospitalist; Visit Provider Family Medicine
DX: K57.31 Diverticulosis of large intestine without perforation or abscess with bleeding (principal); N13.8 Other obstructive and reflux uropathy; D70.9 Neutropenia, unspecified; R50.81 Fever presenting with conditions classified elsewhere; I12.9 Hypertensive chronic kidney disease with stage 1 through stage 4 chronic kidney disease, or unspecified chronic kidney disease; D64.9 Anemia, unspecified; E83.42 Hypomagnesemia; N18.31 Chronic kidney disease, stage 3a; I65.23 Occlusion and stenosis of bilateral carotid arteries; E78.00 Pure hypercholesterolemia, unspecified; N40.1 Benign prostatic hyperplasia with lower urinary tract symptoms; Z86.0101 Personal history of adenomatous and serrated colon polyps
CPT/HCPCS: 00123; 36415; 51798; 80053; 83690; 85652; 86704; 86709; 86803; 87040; 87340; 87389; 87637; 87798; 96361; 96365; 96368; 96375; 99285; J1650; 71046; 74177; 81003; 83605; 83735; 84443; 85025; 85610; 86140; 86308; 86618; 99223; 99231; 99232; 99239; J0131; J1450; J1885; J2543; J3490

== ENCOUNTER 2024-11-22 04:50 | Outpatient (CLI) | payer BC, MEDICARE, SELFPAY ==
[2024-11-22 10:43] LABS: HCT 36.1 % (40.0-50.0); HGB 12.1 g/dL (13.5-17.5); MCH 31.7 pg (27.0-33.0); MCHC 33.5 % (32.0-36.0); MCV 95 fL (80-95); MPV 11.4 fL (8.0-11.0); Platelet Count 208 10^3/uL (130-400); RBC 3.82 10^6/uL (4.36-5.78); RDW 12.5 % (11.8-14.1); RDW-SD 43.2 fL; WBC 7.49 10^3/uL (4.4-10.8)
[2024-11-22 11:01] LABS: ALT 24 U/L (16-63); AST 28 U/L (15-37); Albumin 3.5 g/dL (3.4-5.0); Alkaline Phosphatase 60 U/L (46-116); Anion Gap 7.8 mmol/L (3-11); BUN 18 mg/dL (7-18); Bilirubin, Total 0.6 mg/dL (0.2-1.0); CO2 27.2 mmol/L (21.0-32.0); Calcium 9.2 mg/dL (8.5-10.1); Chloride 105 mmol/L (98-107); Estimated GFR 71.32 (mL/min/1.73m2); Glucose 109 mg/dL (74-106); Potassium 4.7 mmol/L (3.5-5.1); Sodium 140 mmol/L (136-145); Total Protein 7.3 g/dL (6.4-8.2)
== END 2024-11-22 04:51 | disposition home or self-care (01) ==
LOC: LBO 04:50
PROVIDERS: PCP Nurse Practitioner; Referring Provider Family Medicine; Visit Provider Family Medicine
DX: N18.31 Chronic kidney disease, stage 3a (principal); D70.9 Neutropenia, unspecified
CPT/HCPCS: 36415; 80053; 85027

== ENCOUNTER 2024-11-25 14:21 | Outpatient (CLI) | payer BC, SELFPAY ==
[2024-11-25 15:35] LABS: Abs Immature Grans 0.04 10^3/uL (0.0-0.06); HCT 32.8 % (40.0-50.0); HGB 11.0 g/dL (13.5-17.5); Immature Grans % 0.5 %; MCH 31.5 pg (27.0-33.0); MCHC 33.5 % (32.0-36.0); MCV 94 fL (80-95); MPV 11.3 fL (8.0-11.0); Platelet Count 166 10^3/uL (130-400); RBC 3.49 10^6/uL (4.36-5.78); RDW 12.8 % (11.8-14.1); RDW-SD 44.1 fL; WBC 8.53 10^3/uL (4.4-10.8)
== END 2024-11-25 14:22 | disposition home or self-care (01) ==
LOC: LBO 14:23
PROVIDERS: PCP Nurse Practitioner; Visit Provider Family Medicine
DX: Z13.9 Encounter for screening, unspecified (principal)
CPT/HCPCS: 36415; 85025

== ENCOUNTER 2025-02-27 16:16 | Outpatient (CLI) | payer BC, SELFPAY ==
[2025-02-28 18:50] LABS: PSA, Diagnostic 6.4 ng/mL (<=6.5)
== END 2025-02-27 16:17 | disposition home or self-care (01) ==
LOC: LBO 16:17
PROVIDERS: PCP Nurse Practitioner; Visit Provider Nurse Practitioner Gerontology
DX: R97.20 Elevated prostate specific antigen [PSA] (principal); Z80.42 Family history of malignant neoplasm of prostate; N40.1 Benign prostatic hyperplasia with lower urinary tract symptoms
CPT/HCPCS: 36415; 84153